=== PATIENT | male | born 1955 | race Asian ===

== ENCOUNTER 2019-11-13 21:46 | Emergency (ER) | payer MEDICARE ==
[~2019-11-13] VITALS: Ht 172.7 cm; Wt 79.0 kg
[2019-11-13 21:47] VITALS: TEMP 97.8
[2019-11-13 22:23] LABS: BASO % 0.4 % (0.0-2.0); EOS # 0.2 (0.0-0.7); EOS % 2.3 % (0-4.0); GRAN # 6.1 (1.4-6.5); GRAN % 80.2 % (42.2-75.2); HEMOGLOBIN 12.4 g/dl (13.5-18.0); LYMPH # 0.7 (1.2-3.4); LYMPH % 9.8 % (20.0-51.0); MEAN CELL VOLUME 93 fl (80.0-100.0); MEAN CORPUSCULAR HEMOGLOBIN 33 pg (27.0-31.0); MEAN CORPUSCULAR HGB CONC 36 g/dl (33.0-37.0); MEAN PLATELET VOLUME 9.2 fl (7.4-10.4); MONO # 0.5 (0.1-0.6); MONO % 6.9 % (1.7-9.3); PLATELET COUNT 153 K/mm3 (130-400); RED BLOOD COUNT 3.73 M/mm3 (4.20-5.60); REDCELL DISTRIBUTION WIDTH-CV 12.7 % (11.5-14.5)
[2019-11-13 22:24] LABS: HEMATOCRIT 34.8 % (42.0-52.0)
[2019-11-13 22:34] LABS: ACETAMINOPHEN < 10 ug/mL (10-30); ALANINE AMINOTRANSFERASE 14 U/L (21-72); ALBUMIN 4.2 gm/dL (3.5-5.0); ALCOHOL(ethanol),MEDICAL < 10 mg/dL; ALKALINE PHOSPHATASE 119 U/L (50-136); ANION GAP 14 mmol/L (7-16); AST,SGOT 27 U/L (15-37); BILIRUBIN,TOTAL 0.5 mg/dL (0.0-1.0); BLOOD UREA NITROGEN 39 mg/dL (9-20); CALCIUM 7.9 mg/dL (8.4-10.2); CARBON DIOXIDE 31 mmol/L (22-30); CHLORIDE 91 mmol/L (98-107); CREATININE, serum 4.34 (0.66-1.25); GLUCOSE 300 mg/dL (74-106); POTASSIUM 3.8 mmol/L (3.4-5.0); SODIUM 136 mmol/L (137-145); TOTAL PROTEIN 7.6 gm/dL (6.4-8.2)
[2019-11-14 00:04] LABS: COLLECTION METHOD CLEAN CATCH
[2019-11-14 00:10] LABS: MUCOUS Present /lpf; PH 8 (5-8); SQUAMOUS EPITHELIAL 0-2 /hpf; URINE APPEARANCE Clear; URINE BACTERIA None Seen /hpf; URINE BILIRUBIN Negative (NEGATIVE); URINE BLOOD Negative (NEGATIVE); URINE COLOR Yellow; URINE GLUCOSE 3+ (NEGATIVE); URINE KETONE Negative (NEGATIVE); URINE LEUKOCYTE ESTERASE Negative (NEGATIVE); URINE NITRATE Negative (NEGATIVE); URINE PROTEIN(semi-quant) 2+ (NEGATIVE); URINE UROBILINOGEN Negative (NEGATIVE)
[2019-11-14 00:17] LABS: TRICYCLIC ANTIDEPRESS URINE NEGATIVE
[2019-11-14 01:13] VITALS: BP 136/73; PULSE 85
== END 2019-11-14 01:13 | disposition home or self-care (01) ==
LOC: COL.ER 21:46
PROVIDERS: Family Medicine
DX: F32.9 Major depressive disorder, single episode, unspecified (principal); N18.6 End stage renal disease; Z99.2 Dependence on renal dialysis

== ENCOUNTER 2019-12-08 18:57 | Emergency (ER) | payer MEDICARE ==
[~2019-12-08] VITALS: Ht 172.7 cm; Wt 2.3 kg
[2019-12-08 18:58] VITALS: TEMP 98.3
[2019-12-08 19:35] LABS: BASO % 0.7 % (0.0-2.0); EOS # 0.2 (0.0-0.7); GRAN # 4.5 (1.4-6.5); GRAN % 75.5 % (42.2-75.2); HEMOGLOBIN 12.5 g/dl (13.5-18.0); LYMPH # 0.8 (1.2-3.4); MEAN CELL VOLUME 93 fl (80.0-100.0); MEAN CORPUSCULAR HEMOGLOBIN 32 pg (27.0-31.0); MEAN CORPUSCULAR HGB CONC 34 g/dl (33.0-37.0); MEAN PLATELET VOLUME 8.8 fl (7.4-10.4); MONO # 0.5 (0.1-0.6); MONO % 7.5 % (1.7-9.3); PLATELET COUNT 130 K/mm3 (130-400); RED BLOOD COUNT 3.94 M/mm3 (4.20-5.60); REDCELL DISTRIBUTION WIDTH-CV 12.5 % (11.5-14.5)
[2019-12-08 19:36] LABS: HEMATOCRIT 36.8 % (42.0-52.0)
[2019-12-08 19:42] LABS: ALBUMIN 4.4 gm/dL (3.5-5.0); BILIRUBIN,TOTAL 0.6 mg/dL (0.0-1.0); CALCIUM 8.9 mg/dL (8.4-10.2); CREATININE, serum 8.31 (0.66-1.25); POTASSIUM 4.7 mmol/L (3.4-5.0); TOTAL PROTEIN 8.1 gm/dL (6.4-8.2)
[2019-12-08 19:54] LABS: TROPONIN-I 0.02 ng/mL (0.000-0.035)
[2019-12-08 23:05] VITALS: BP 146/82; PULSE 83
== END 2019-12-08 23:05 | disposition home or self-care (01) ==
LOC: COL.ER 18:57
PROVIDERS: Emergency Medicine
DX: E11.65 Type 2 diabetes mellitus with hyperglycemia (principal); E11.22 Type 2 diabetes mellitus with diabetic chronic kidney disease; I12.0 Hypertensive chronic kidney disease with stage 5 chronic kidney disease or end stage renal disease; N18.6 End stage renal disease; Z99.2 Dependence on renal dialysis; Z87.891 Personal history of nicotine dependence; Z95.9 Presence of cardiac and vascular implant and graft, unspecified
CPT/HCPCS: J1815

== ENCOUNTER 2019-12-17 22:41 | Emergency (ER) | payer MEDICARE ==
[~2019-12-17] VITALS: Ht 172.7 cm; Wt 80.2 kg
[2019-12-17 22:47] VITALS: BP 176/81; TEMP 97.5
[2019-12-18 00:56] VITALS: PULSE 70
== END 2019-12-18 00:57 | disposition home or self-care (01) ==
LOC: COL.ER 22:41
DX: K56.41 Fecal impaction (principal); N18.6 End stage renal disease; Z99.2 Dependence on renal dialysis

== ENCOUNTER 2020-07-31 20:28 | Observation (INO) | payer MEDICARE ==
[~2020-07-31] VITALS: Ht 172.7 cm; Wt 83.0 kg
[~2020-07-31 20:28] MED LIST: LEVEMIR FLEX100 U/ML SQ; LIPITOR 40MG TA40 MG PO; STOOL SOFTENER100 M2 PO; TUMS500 MG PO; VITAMIN B12 781 TAB PO; VITAMIN D 400400 IU PO
[2020-07-31 20:57] VITALS: BP 126/73; PULSE 79
[2020-07-31 21:00] LABS: BASO % 0.5 % (0.0-2.0); EOS # 0.1 (0.0-0.7); EOS % 1.7 % (0-4.0); GRAN # 4.5 (1.4-6.5); GRAN % 76.8 % (42.2-75.2); HEMOGLOBIN 10.9 g/dl (13.5-18.0); LYMPH # 0.6 (1.2-3.4); LYMPH % 10.6 % (20.0-51.0); MEAN CELL VOLUME 92 fl (80.0-100.0); MEAN CORPUSCULAR HEMOGLOBIN 31 pg (27.0-31.0); MEAN CORPUSCULAR HGB CONC 34 g/dl (33.0-37.0); MEAN PLATELET VOLUME 9.2 fl (7.4-10.4); MONO # 0.6 (0.1-0.6); MONO % 10.1 % (1.7-9.3); PLATELET COUNT 153 K/mm3 (130-400); RED BLOOD COUNT 3.51 M/mm3 (4.20-5.60); REDCELL DISTRIBUTION WIDTH-CV 13.3 % (11.5-14.5)
[2020-07-31 21:02] LABS: HEMATOCRIT 32.4 % (42.0-52.0)
[2020-07-31 21:19] LABS: ALANINE AMINOTRANSFERASE 16 U/L (4-49); ALBUMIN 4.2 gm/dL (3.5-5.0); ALKALINE PHOSPHATASE 69 U/L (50-136); ANION GAP 10 mmol/L (7-16); AST,SGOT 22 U/L (15-37); BILIRUBIN,TOTAL 0.5 mg/dL (0.0-1.0); BLOOD UREA NITROGEN 30 mg/dL (9-20); CALCIUM 8.7 mg/dL (8.4-10.2); CARBON DIOXIDE 33 mmol/L (22-30); CHLORIDE 95 mmol/L (98-107); CREATININE, serum 5.21 (0.66-1.25); GLUCOSE 187 mg/dL (74-106); POTASSIUM 3.7 mmol/L (3.4-5.0); SODIUM 138 mmol/L (137-145); TOTAL PROTEIN 7.4 gm/dL (6.4-8.2)
[2020-07-31 21:20] LABS: C-REACTIVE PROTEIN < 0.5 mg/dL (0.0-0.9)
[2020-07-31 21:30] LABS: TROPONIN-I 0.012 ng/mL (0.000-0.035)
[2020-07-31] MEDS ORDERED: METAMUCIL3.4 GM/Dos (21:44)
--- NOTE | 2020-07-31 23:54 | NUR ---
RECEIVED REPORT FROM OSCAR PEOPLES. PT SUPPOSED TO BE ON TELE BUT NO MORE BOX AVAILABLE AT THIS TIME. PURVI MOSQUEDA AWARE.
[2020-08-01] VITALS (8 sets, daily range): BP systolic 100–167; BP diastolic 46–80; PULSE 74–91; TEMP 97.9–98.6
--- NOTE | 2020-08-01 00:13 | NUR ---
PT ARRIVED IN UNIT VIA WHEELCHAIR, ALERT AND ORIENTED X 4, ON ROOM AIR.
[2020-08-01] MEDS ORDERED: ASPIRIN 81M81 MG/TA2 PO (00:42)
--- NOTE | 2020-08-01 06:30 | NUR ---
CLARIFIED WITH PATIENT THAT HE TAKES 20 UNITS OF LEVEMIR AT NIGHT. OSITO, PHARMACIST UPDATED. WILL PASS THIS ALONG TO ONCOMING DAY SHIFT NURSE TO CLARIFY WITH DR. LUEVANO THIS AM. LEVEMIR DOSE LAST NIGHT WAS MISSED IT WAS ON PENDING STATUS.
--- NOTE | 2020-08-01 09:32 | NUR ---
Initial visit; Patient appeared to like speaking with Boardinghouse Keeper about his beliefs and health issues. Boardinghouse Keeper offered prayer and God's blessings.
[2020-08-01 09:49] LABS: ALBUMIN 3.6 gm/dL (3.5-5.0); CREATININE, serum 6.21 (0.66-1.25); POTASSIUM 4.1 mmol/L (3.4-5.0)
--- NOTE | 2020-08-01 09:50 | NUR ---
Pt sleeping upon entry, no C/O pain at this time, shift assessments complete, left Pt call light in reach, bed in lowest position.
--- NOTE | 2020-08-01 16:20 | NUR ---
Bursar met with the patient to complete intake. The patient lives alone in [place]. The patient has a cane he uses when he goes out in the community. He uses the bus for transport. He is independent with ADLs. The patient's PCP is Dr. Mcgregor and his Component Inspector is Dr. Amado. The patient receives medications from [facility] pharmacy. The patient does not have advanced directives and was not interested in DPOA-HC form. He is not but has two daughters, Livia and Kaylan Khan. Livia # [phone]. The patient plans to return home at discharge.
--- NOTE | 2020-08-01 18:52 | NUR ---
Pt rsting in the room, no C/O pain today, VS have remained stable.
--- NOTE | 2020-08-01 21:10 | NUR ---
Pt assessment completed and documented. Pt resting in bed watching television. Pt alert and oriented x4. Denies pain. INT to right hand CDI. Fistula to LUE CDI with autible bruit and strong thrill. Pt denies any needs at this time. Call light within reach. Will continue to monitor
[2020-08-02 03:41] VITALS: BP 134/61; PULSE 76; TEMP 98.2
--- NOTE | 2020-08-02 05:22 | NUR ---
Pt has been awake intermittently throughout the night. Pt has denied pain. Pt denies any needs/concerns at this time. Call light within reach.
--- NOTE | 2020-08-02 07:31 | NUR ---
Report given to OSCAR Andersen
[2020-08-02 07:58] LABS: ALBUMIN 3.8 gm/dL (3.5-5.0); CALCIUM 8.9 mg/dL (8.4-10.2); CREATININE, serum 8.25 (0.66-1.25); PHOSPHOROUS 6.9 mg/dL (2.5-4.5); POTASSIUM 4.2 mmol/L (3.4-5.0)
[2020-08-02 08:47] LABS: BASO # 0.1 (0.0-0.2); BASO % 0.7 % (0.0-2.0); EOS # 0.3 (0.0-0.7); EOS % 4.6 % (0-4.0); GRAN # 4.9 (1.4-6.5); GRAN % 69.9 % (42.2-75.2); HEMOGLOBIN 10.9 g/dl (13.5-18.0); LYMPH # 1.2 (1.2-3.4); LYMPH % 17.3 % (20.0-51.0); MEAN CELL VOLUME 93 fl (80.0-100.0); MEAN CORPUSCULAR HEMOGLOBIN 31 pg (27.0-31.0); MEAN CORPUSCULAR HGB CONC 33 g/dl (33.0-37.0); MEAN PLATELET VOLUME 9.1 fl (7.4-10.4); MONO # 0.5 (0.1-0.6); MONO % 7.2 % (1.7-9.3); PLATELET COUNT 162 K/mm3 (130-400); REDCELL DISTRIBUTION WIDTH-CV 13.2 % (11.5-14.5)
[2020-08-02 08:48] LABS: HEMATOCRIT 32.6 % (42.0-52.0)
--- NOTE | 2020-08-02 10:22 | NUR ---
Pt sleeping upon entry, easily awakened, no C/O pain at this time, shift assessments complete, moved Pt to dialysis.
[2020-08-02 12:30] VITALS: BP 132/55; PULSE 70; TEMP 97.5
--- NOTE | 2020-08-02 12:30 | NUR ---
Crm Technical Lead contacted the patient's daughter to discuss the discharge plan. She states the patient was supposed to have an appointment with Dr. Mcgregor this day to set up home health services. The patient is to return home with [facility]. She will be able to give the patient a ride if he discharge in-between 3:[address] Mcgregor's office, the patient is to be set up with [facility] because they have a mental health nurse. Referral faxed. LETICIA contacted Demetria with [facility] to inform her of the referral. The patient is Medicare Aet[employer] and they will have to check the insurance benefit. Per Dr. Mcgregor office Crm Technical Lead the patient has an open APS case due to the patient's daughter trying to get guardianship. She is having trouble affording the legal fees. LETICIA attempted to contact the APS worker assigned, Sofi Cheek, left message. The patient has dialysis M/W/F and the Dr. Mcgregor's office requested any appointments be made on Tuesdays and . LETICIA informed Medical unit controllerJose Augustin from [facility] they cannot accept the patient due to they do not take Medicare Aetna. LETICIA contacted [facility] and they do take Medicare Aetna. Referral faxed. LETICIA collaborated the above information with Hazel in Dr. Mcgregor's office to provide this update.
[2020-08-02 16:42] VITALS: BP 137/59; PULSE 77; TEMP 98.1
--- NOTE | 2020-08-02 16:53 | NUR ---
[facility] is not in-network with the patient's insurance. [facility] is in network. LETICIA sent referral to [facility]. LETICIA contacted Rakel with [facility] to inform her. She will review the referral.
--- NOTE | 2020-08-02 21:30 | NUR ---
Pt was setting on recliner while this nurse was taking bedside handover. Pt assessment completed and charted. Meds provided as per MAR, tolerated well. Pt is settled on his bed, bed alaram is on. Call light is on reach, no futher needs at this time.
[2020-08-02 21:32] VITALS: BP 173/67; PULSE 83; TEMP 98.2
[2020-08-03 00:22] VITALS: BP 156/57; PULSE 96; TEMP 98.4
[2020-08-03 04:30] VITALS: BP 145/71; PULSE 79; TEMP 98.6
--- NOTE | 2020-08-03 06:07 | NUR ---
Pt slept on and off through out the night. Complained of pain around 0430, PRN pain meds provided, also pt wanted to walk to the hallway, accompanied him for walk. Pt went to sleep after that. No further needs at this time.
[2020-08-03 09:04] LABS: ALBUMIN 3.9 gm/dL (3.5-5.0); CALCIUM 9.1 mg/dL (8.4-10.2); CREATININE, serum 6.41 (0.66-1.25); PHOSPHOROUS 5.3 mg/dL (2.5-4.5); POTASSIUM 4.6 mmol/L (3.4-5.0)
--- NOTE | 2020-08-03 09:12 | NUR ---
Pt awake and alert this morning, no C/O pain at this time, Pt upset about daughter not calling and was yelling at staff, calmed Pt, Pt wants to speak with social work, shift assessments complete, left Pt sitting on side of bed eating breakfast, call light in reach.
[2020-08-03 13:17] VITALS: BP 160/67; PULSE 67
--- NOTE | 2020-08-03 14:27 | NUR ---
SW attempted notification of DC to DTR 6 calls made. Phone goes to voicemail and can not leave message. SW called non-emergent line to [employer] to send message to family Member to go to home. Notify of DC and needs to picker operator. Father indicated that DTR will not answer her phone.
--- NOTE | 2020-08-03 15:35 | NUR ---
SW called House to assist with taxi voucher to [place]. Patient prompted on being able to care for himself. Patient stated he did not care and he was tired. patient stated not to wake him until its devika to leave.
--- NOTE | 2020-08-03 16:40 | NUR ---
Pt discharged to home, discussed discharge packet with Pt, escorted Pt to entrance, Pt left in Taxi.
--- NOTE | 2020-08-05 16:01 | NUR ---
Rakel from [facility] reports they did take the patient for services and admitted the patient for home health services on Saturday 08/04. Nursing and PT. Rakel reports she is collaborating with the professor of art from Dr. Garcia's office due to the patient being safe at home.
[2020-10-02] MEDS ORDERED: PREDNISONE20 MG PO (10:07)
[2020-10-02] MEDS ORDERED: RT Anoro Ellipta IH (10:09)
== END 2020-08-03 16:40 | disposition home or self-care (01) ==
LOC: COL.ER 20:28 → MEDICAL 22:14
PROVIDERS: Emergency Medicine; ADMIT Internal Medicine Nephrology
DX: I95.9 Hypotension, unspecified (principal); I12.0 Hypertensive chronic kidney disease with stage 5 chronic kidney disease or end stage renal disease; E11.22 Type 2 diabetes mellitus with diabetic chronic kidney disease; N18.6 End stage renal disease; D63.1 Anemia in chronic kidney disease; J84.10 Pulmonary fibrosis, unspecified; I25.2 Old myocardial infarction; I25.10 Atherosclerotic heart disease of native coronary artery without angina pectoris; F43.10 Post-traumatic stress disorder, unspecified; F41.0 Panic disorder [episodic paroxysmal anxiety]; Z99.2 Dependence on renal dialysis; Z79.4 Long term (current) use of insulin; Z79.899 Other long term (current) drug therapy; Z79.82 Long term (current) use of aspirin; Z87.891 Personal history of nicotine dependence; Z87.820 Personal history of traumatic brain injury; Z95.1 Presence of aortocoronary bypass graft; Z95.828 Presence of other vascular implants and grafts
CPT/HCPCS: OP; G0378; J1815; J7030

== ENCOUNTER 2020-08-11 23:08 | Emergency (ER) | payer MEDICARE ==
[~2020-08-11] VITALS: Ht 172.7 cm; Wt 83.2 kg
[~2020-08-11 23:08] MED LIST changes: +ASPIRIN 81M81 MG/TA2 PO; +METAMUCIL3.4 GM/Dos
[2020-08-11 23:27] VITALS: TEMP 98.3
[2020-08-12 00:19] LABS: BASO % 0.4 % (0.0-2.0); EOS # 0.2 (0.0-0.7); EOS % 2.1 % (0-4.0); GRAN # 7.5 (1.4-6.5); HEMOGLOBIN 11.6 g/dl (13.5-18.0); LYMPH # 0.9 (1.2-3.4); MEAN CELL VOLUME 93 fl (80.0-100.0); MEAN CORPUSCULAR HEMOGLOBIN 31 pg (27.0-31.0); MEAN CORPUSCULAR HGB CONC 33 g/dl (33.0-37.0); MEAN PLATELET VOLUME 8.7 fl (7.4-10.4); MONO # 0.5 (0.1-0.6); MONO % 5.3 % (1.7-9.3); PLATELET COUNT 176 K/mm3 (130-400); RED BLOOD COUNT 3.73 M/mm3 (4.20-5.60); REDCELL DISTRIBUTION WIDTH-CV 13.1 % (11.5-14.5)
[2020-08-12 00:26] LABS: HEMATOCRIT 34.7 % (42.0-52.0)
[2020-08-12 00:40] LABS: COLLECTION METHOD CLEAN CATCH
[2020-08-12 00:40] LABS: ALANINE AMINOTRANSFERASE 19 U/L (4-49); ALBUMIN 4.6 gm/dL (3.5-5.0); ALKALINE PHOSPHATASE 78 U/L (50-136); ANION GAP 18 mmol/L (7-16); AST,SGOT 25 U/L (15-37); BILIRUBIN,TOTAL 0.5 mg/dL (0.0-1.0); BLOOD UREA NITROGEN 70 mg/dL (9-20); CALCIUM 9.3 mg/dL (8.4-10.2); CARBON DIOXIDE 23 mmol/L (22-30); CHLORIDE 97 mmol/L (98-107); GLUCOSE 253 mg/dL (74-106); LIPASE 306 U/L (23-300); SODIUM 138 mmol/L (137-145); TOTAL PROTEIN 8.4 gm/dL (6.4-8.2)
[2020-08-12 00:41] LABS: POTASSIUM 5.9 mmol/L (3.4-5.0)
[2020-08-12 00:47] LABS: PH 9 (5-8); SQUAMOUS EPITHELIAL None Seen /hpf; URINE APPEARANCE Clear; URINE BACTERIA None Seen /hpf; URINE BILIRUBIN Negative (NEGATIVE); URINE BLOOD 1+ (NEGATIVE); URINE COLOR Straw; URINE GLUCOSE 3+ (NEGATIVE); URINE KETONE Negative (NEGATIVE); URINE LEUKOCYTE ESTERASE Negative (NEGATIVE); URINE NITRATE Negative (NEGATIVE); URINE PROTEIN(semi-quant) 3+ (NEGATIVE); URINE UROBILINOGEN Negative (NEGATIVE)
[2020-08-12 00:53] LABS: TROPONIN-I < 0.012 ng/mL (0.000-0.035)
[2020-08-12 03:00] VITALS: BP 177/89; PULSE 79
== END 2020-08-12 03:00 | disposition home or self-care (01) ==
LOC: COL.ER 23:08
PROVIDERS: Emergency Medicine
DX: E11.22 Type 2 diabetes mellitus with diabetic chronic kidney disease (principal); N18.6 End stage renal disease; E87.5 Hyperkalemia; I25.10 Atherosclerotic heart disease of native coronary artery without angina pectoris; Z99.2 Dependence on renal dialysis; Z86.79 Personal history of other diseases of the circulatory system; Z79.82 Long term (current) use of aspirin; Z79.4 Long term (current) use of insulin
CPT/HCPCS: J1815; J2405

== ENCOUNTER 2020-08-27 12:15 | Inpatient (IN) | payer MEDICARE ==
[~2020-08-27] VITALS: Ht 152.4 cm; Wt 79.6 kg
[2020-08-27 13:18] LABS: COLLECTION METHOD CLEAN CATCH
[2020-08-27 13:22] LABS: BASO % 0.2 % (0.0-2.0); GRAN % 76.4 % (42.2-75.2); HEMOGLOBIN 10.9 g/dl (13.5-18.0); LYMPH # 0.5 (1.2-3.4); LYMPH % 10.1 % (20.0-51.0); MEAN CELL VOLUME 95 fl (80.0-100.0); MEAN CORPUSCULAR HEMOGLOBIN 31 pg (27.0-31.0); MEAN CORPUSCULAR HGB CONC 33 g/dl (33.0-37.0); MEAN PLATELET VOLUME 9.4 fl (7.4-10.4); MONO # 0.7 (0.1-0.6); MONO % 13.1 % (1.7-9.3); PLATELET COUNT 122 K/mm3 (130-400); RED BLOOD COUNT 3.51 M/mm3 (4.20-5.60); REDCELL DISTRIBUTION WIDTH-CV 13.6 % (11.5-14.5)
[2020-08-27 13:26] LABS: HEMATOCRIT 33.5 % (42.0-52.0)
[2020-08-27 13:28] LABS: PH 9 (5-8); SQUAMOUS EPITHELIAL None Seen /hpf; URINE APPEARANCE Clear; URINE BACTERIA Rare /hpf; URINE BILIRUBIN Negative (NEGATIVE); URINE BLOOD Negative (NEGATIVE); URINE COLOR Straw; URINE GLUCOSE 3+ (NEGATIVE); URINE KETONE Negative (NEGATIVE); URINE LEUKOCYTE ESTERASE Negative (NEGATIVE); URINE NITRATE Negative (NEGATIVE); URINE PROTEIN(semi-quant) 3+ (NEGATIVE); URINE UROBILINOGEN Negative (NEGATIVE)
[2020-08-27 13:31] LABS: MUCOUS Present /lpf
[2020-08-27 13:34] LABS: ALBUMIN 4.4 gm/dL (3.5-5.0); BILIRUBIN,TOTAL 0.6 mg/dL (0.0-1.0); CALCIUM 8.2 mg/dL (8.4-10.2); CREATININE, serum 8.61 (0.66-1.25); POTASSIUM 4.4 mmol/L (3.4-5.0); TOTAL PROTEIN 7.9 gm/dL (6.4-8.2)
[2020-08-27 13:53] LABS: ARTERIAL BLD GAS O2 SATURATION 97.2 % (92-100); ARTERIAL BLD GAS TCO2 CT 30.1; ARTERIAL BLOOD GAS BASE EXCESS 4.9 (-2-2); ARTERIAL BLOOD GAS HCO3 28.9 meq/L (22-26); ARTERIAL BLOOD GAS PCO2 40.1 mmHg (35-45); ARTERIAL BLOOD GAS PO2 98.5 mmHg (80-100); ARTERIAL BLOOD GAS pH 7.48 (7.35-7.45)
[2020-08-27 19:50] VITALS: BP 144/72; PULSE 97; TEMP 101.1
[2020-08-27 20:08] VITALS: BP 144/74; PULSE 82; TEMP 101.1
--- NOTE | 2020-08-27 20:13 | NUR ---
Pt in room resting, initial assessments complete.
--- NOTE | 2020-08-27 20:20 | NUR ---
Received report from Ganesh. Informed patient that we will transfer him to .301 as the computer is not working. Patient feels really weak and cannot transfer from bed to wheelchair. Transferred patient from his bed. He is on O2 at 2lpm via NC. He is febrile with temp of 101.1F. On left arm restriction, with fistula on his left upper arm covered with gauze. With INT on right AC. Call light within reach.
--- NOTE | 2020-08-27 20:39 | NUR ---
This nurse called Dr. Amado for the order of Accucheck. He ordered ACHS and low dose insulin. Verified if patient will have dialysis tomorrow and he said yes and asked if lab works can be done during dialysis and he said it's okay. Updated him that patient is febrile right now with temp of 101.1F.
[2020-08-27 22:12] VITALS: TEMP 101
[2020-08-27 23:19] VITALS: BP 132/74; PULSE 83; TEMP 99
[2020-08-28 03:34] VITALS: BP 132/74; PULSE 74; TEMP 98.2
--- NOTE | 2020-08-28 06:26 | NUR ---
Patient still on O2 at 2lpm via NC. He is afebrile now with temp of 98.2F. Informed patient that he will have dialysis today but no specific time. Sputum specimen submitted, pending result. Call light within reach. Bed alarm on.
--- NOTE | 2020-08-28 06:55 | NUR ---
Report from OSCAR Harding. Pt sitting up in bed, A&O x 3, denies needs at this time. Call light in reach.
[2020-08-28 08:15] VITALS: BP 138/80; PULSE 79; TEMP 98.2
--- NOTE | 2020-08-28 08:15 | NUR ---
Assessment complete. Pt sitting up in bed, A&O x 3, assisted with getting breakfast set up. Pt denies pain, reports overall fatigue. Saline lock IV to right AC without s/s of complications. O2 at 2 L/min via NC. No further needs reported. Call light in reach.
[2020-08-28 10:39] VITALS: BP 180/102; PULSE 79; TEMP 99.8
--- NOTE | 2020-08-28 11:33 | NUR ---
The patient is positive for COVID. SW contacted the patient's personal phone to complete intake. The patient lives alone in [place]. He states that his daughter, Livia Khan (ph#[phone]), also lives in [place]. He reports independence with ADLs and has a cane and a cart that he uses as a walker. The patient's PCP is Dr. Isidra Mcgregor and he receives his medications from [facility]. He reports no difficulties obtaining his meds. The patient does not have a DPOA-HC and he was not interested in completing a DPOA-HC at this time. He states that he is not and that he has two children: Livia and Kaylan. He states that Kaylan lives in [facility] or [place]. The patient was recently hospitalized in July. The patient had an open APS case then. LETICIA contacted the patient's APS worker, Sofi. Sofi states that the patient's case was closed. She states that they got things set up that the patient needed and he was getting a payee out of [place]. The patient plans to return home upon discharge. LETICIA attempted to contact the patient's daughter, Livia. SW left her a voicemail. SW to continue to follow.
--- NOTE | 2020-08-28 12:05 | NUR ---
Pt's BP elevated, PRN medication administered per orders and Nephrology nurse notified. Pt was up to bathroom for BM just after BP assessed. No further needs reported. Call light in reach.
[2020-08-28 14:29] LABS: MEAN CELL VOLUME 92 fl (80.0-100.0); MEAN CORPUSCULAR HGB CONC 34 g/dl (33.0-37.0); MEAN PLATELET VOLUME 9.4 fl (7.4-10.4); PLATELET COUNT 116 K/mm3 (130-400); RED BLOOD COUNT 3.13 M/mm3 (4.20-5.60); REDCELL DISTRIBUTION WIDTH-CV 13.1 % (11.5-14.5)
[2020-08-28 14:36] LABS: HEMATOCRIT 28.9 % (42.0-52.0); HEMOGLOBIN 9.7 g/dl (13.5-18.0); MEAN CORPUSCULAR HEMOGLOBIN 31 pg (27.0-31.0)
[2020-08-28 14:38] LABS: ALBUMIN 3.8 gm/dL (3.5-5.0); BILIRUBIN,TOTAL 0.4 mg/dL (0.0-1.0); CALCIUM 7.5 mg/dL (8.4-10.2); CREATININE, serum 10.36 (0.66-1.25); POTASSIUM 5.2 mmol/L (3.4-5.0); TOTAL PROTEIN 7.1 gm/dL (6.4-8.2)
[2020-08-28 15:08] LABS: BAND 8 % (0-10); LYMPHOCYTE 5 % (20.0-51.0); NEUTROPHILS 86 % (42.0-75.2); PLATELET ESTIMATE DECREASED (NORMAL)
--- NOTE | 2020-08-28 16:30 | NUR ---
LETICIA contacted the patient's daughter, Livia, and provided her with an update and reviewed the patient's d/c plan. Livia states that she visits the patient usually once a week and talks to him a few times a week. Livia reports that she has no concerns about the patient returning home upon discharge.
--- NOTE | 2020-08-28 17:45 | NUR ---
Pt's dialysis complete. Pt sitting up on side of bed eating dinner. Sched medication administered. Hot tea provided per request. No further needs reported. Call light in reach.
[2020-08-28 20:10] VITALS: BP 145/74; PULSE 68; TEMP 98.9
--- NOTE | 2020-08-28 21:05 | NUR ---
Pt resting in bed, assessment completed. heart sounds are regular and normal, lung sounds are diminished. shortness of breath on exertion with a nonproductive cough. pt on 2 liters oxgen via nasal cannula. pt reports dizziness when walking, gait is steady but slow. gave medications per MAR, no other needs at this time. will continue to monitor.
[2020-08-28 23:28] VITALS: BP 150/74; PULSE 76; TEMP 98.8
--- NOTE | 2020-08-29 01:52 | NUR ---
pt reporting abdominal pain, denies nausea and vomiting. requested tylenol. gave tylenol prn.
[2020-08-29 03:27] VITALS: BP 152/75; PULSE 73; TEMP 98.8
--- NOTE | 2020-08-29 05:45 | NUR ---
Pt slept in bed most of night, called for any needs. no fever, vital signs remained stable. on oxygen at 2 liters via nasal cannula. pt reported one instance of abdominal pain, gave tylenol prn. pain improved, no other needs at this time.
[2020-08-29 08:18] VITALS: BP 180/75; PULSE 100; TEMP 102.8
--- NOTE | 2020-08-29 10:54 | NUR ---
Assessment complete. Patient was attempting to stand on his own on entry early this morning in order to use the urinal. Bed alarm was triggered, I gowned up to go in. He was partially incontinent. Full bed change and gown provided. Patient then ambulated to recliner to sit for the morning and breakfast. He will randomly wince in pain but when asking what is hurting he is non specific and will not tell me what is hurting. Patient was very talkative and seemed to be in good spirits for the most part. BP was high, PRN apresoline provided for this, temp 102.8 PRN tylenol provided for this. No other needs or complaints from the patient at this time. Call light is in reach.
[2020-08-29 11:44] VITALS: BP 147/58; PULSE 82; TEMP 99.8
[2020-08-29 16:25] VITALS: BP 154/59; PULSE 81; TEMP 98.5
--- NOTE | 2020-08-29 18:17 | NUR ---
Patient had a pretty good day. Spent most of it in the recliner. Had to remind patient that it can be difficult to get to him fast due to the preautions on the COVID floor, he is understanding when speaking to him in person but will often become angry and yell through the call light. He voided using the urinal through the day but often missed and soiled his pants. Still non specfic aches and pains when moving around. IV site is CD&I. Fistula site CD&I. No other needs. Call light is in reach.
--- NOTE | 2020-08-29 19:30 | NUR ---
Patient assessed at this time. Alert and oriented x 4, and able to make needs known. Reported level 3 pain to abdomen. Given PRN APAP as requested, as well as scheduled Tums. Peripheral INT to right forearm flushed. Site without redness, warmth, swelling, and pain. AV fistual to left arm with positive bruit and thrill. Denies SOB and dyspnea. Continues on oxygen at 2 L/min via NC. LS CTA. Respirations even and unlabored. HRR. Capillary refill less than 3 seconds. Non-tenting skin turgor. BS hypoactive x 4. Reports no BM for a few days, but is passing gas. Abdomen soft. 2+ edema BLE. Using bedside urinal-urine yellow and clear. Voices no questions, needs, or concerns at this time. Resting in bed with call light within reach.
[2020-08-29 20:03] VITALS: BP 150/74; PULSE 81; TEMP 98.5
[2020-08-29 23:53] VITALS: BP 156/80; PULSE 83; TEMP 98.2
[2020-08-30] VITALS (9 sets, daily range): BP systolic 133–165; BP diastolic 69–88; PULSE 77–104; TEMP 97.3–103.2
--- NOTE | 2020-08-30 05:49 | NUR ---
Patient had fever 102.1 around 0445. Had received PRN APAP around 0230 for pain to abdomen. Stated that medication was effective for pain management. Continues to be on oxygen at 2 L/min via NC. Occasional cough, dry, non-productive. Did get nauseous around 0230 as well, but declined wanting PRN Zofran. Given hot tea as requested. Patient has been using bedside urinal, but has been incontinent as well. Voices no questions, needs, or concerns at this time. Resting in bed with call light within reach.
--- NOTE | 2020-08-30 09:44 | NUR ---
Assessment complete. Patient laying in bed asleep on entry. When he awoke he stated that he felt he had a fever and wanted me to take his temperature. On check his temp was 103.o, Madina MOORE aware. PRN tylenol provded for the patient. Moans and groans on movement but remains non specific. IV site and fistula site are CD&I at this time, IV flushed well. Patient is droswy and not talkative at this time. No other needs were expressed at this time. Call light is in reach. Bed alarm is set.
[2020-08-30 10:55] LABS: MEAN CELL VOLUME 92 fl (80.0-100.0); MEAN CORPUSCULAR HGB CONC 34 g/dl (33.0-37.0); MEAN PLATELET VOLUME 9.9 fl (7.4-10.4); PLATELET COUNT 109 K/mm3 (130-400); RED BLOOD COUNT 3.02 M/mm3 (4.20-5.60); REDCELL DISTRIBUTION WIDTH-CV 13.2 % (11.5-14.5)
[2020-08-30 11:08] LABS: HEMATOCRIT 27.7 % (42.0-52.0); HEMOGLOBIN 9.3 g/dl (13.5-18.0); MEAN CORPUSCULAR HEMOGLOBIN 31 pg (27.0-31.0)
[2020-08-30 11:15] LABS: BAND 21 % (0-10); LYMPHOCYTE 8 % (20.0-51.0); NEUTROPHILS 71 % (42.0-75.2); PLATELET ESTIMATE DECREASED (NORMAL)
[2020-08-30 11:35] LABS: ALBUMIN 3.8 gm/dL (3.5-5.0); BILIRUBIN,TOTAL 0.4 mg/dL (0.0-1.0); CALCIUM 8.2 mg/dL (8.4-10.2); CREATININE, serum 9.96 (0.66-1.25); POTASSIUM 5.1 mmol/L (3.4-5.0); TOTAL PROTEIN 7.2 gm/dL (6.4-8.2)
--- NOTE | 2020-08-30 17:58 | NUR ---
Patient had an uneventful shift. Spent most of day with Mariola in room during dialysis. Convolescant FFP was administered during dialysis. Mariola and I recieved verbal consent for this. Minimal complaints of pain, covered with tylenol. Patient is drowsy now after dialysis but is more alert than he was this morning. Will continue to monitor. Call light is in reach. Fall precautions in place.
--- NOTE | 2020-08-30 19:00 | NUR ---
Received report from Maria Ines. Seen patient awake, lying in bed. His urinal was in the floor and he was trying to reach it. Informed patient to use the call light if he needs help. He is alert and oriented. Denies pain.
--- NOTE | 2020-08-30 20:35 | NUR ---
Patient is febrile with temp of 102.6F. Tylenol given. His SPO2 was at 89% on O2 2lpm. Increased O2 to 3lpm via NC. Informed Aracelis of RT.
[2020-08-31] VITALS (9 sets, daily range): BP systolic 118–150; BP diastolic 56–90; PULSE 81–94; TEMP 97.1–102.7
--- NOTE | 2020-08-31 02:35 | NUR ---
Patient states he's hungry. [place] box provided. Rechecked temp= 99.4F. Changed his briefs and underpads.
--- NOTE | 2020-08-31 06:25 | NUR ---
Patient had febrile episodes the whole night. Latest temp was 99F. No bowel movement during the night. Still on O2 at 3lpm via NC.
--- NOTE | 2020-08-31 08:28 | NUR ---
Lying in bed with eyes closed, opens eyes when name called out. Alert and oriented x3. Having some pain in his abdomen, requests Tylenol for this. Will administer as prescribed. Denies shortness of air or productive cough. Oxygen on at 3L/NC. Patient denies further needs or concerns at this time.
--- NOTE | 2020-08-31 11:26 | NUR ---
Patient does not want to do shower but would like a bed bath. Bed bath provided at this time. Patient assisted from bed to chair so that bed linens could be changed. Patient gait slow. Bed linens changed. Patient performs oral care. Patient says that since he has gotten sick he gets worn out easier. Wants to stay sitting up in chair. Assisted to reclining position. Patient says that he is frustrated that he feels so helpless. Reassurance provided. Patient denies additional needs at this time.
--- NOTE | 2020-08-31 13:01 | NUR ---
Patient ready to get back in bed. Assisted back to bed. Patient does not want to eat at this time but wants his lunch tray left in room. Denies additional needs at this time.
[2020-08-31 14:48] LABS: MEAN CELL VOLUME 95 fl (80.0-100.0); MEAN CORPUSCULAR HGB CONC 33 g/dl (33.0-37.0); MEAN PLATELET VOLUME 10.2 fl (7.4-10.4); PLATELET COUNT 91 K/mm3 (130-400); RED BLOOD COUNT 3.18 M/mm3 (4.20-5.60); REDCELL DISTRIBUTION WIDTH-CV 13.4 % (11.5-14.5)
[2020-08-31 14:50] LABS: HEMATOCRIT 30.1 % (42.0-52.0); HEMOGLOBIN 9.8 g/dl (13.5-18.0); MEAN CORPUSCULAR HEMOGLOBIN 31 pg (27.0-31.0)
[2020-08-31 14:58] LABS: ALBUMIN 3.9 gm/dL (3.5-5.0); BILIRUBIN,TOTAL 0.6 mg/dL (0.0-1.0); CALCIUM 8.7 mg/dL (8.4-10.2); CREATININE, serum 8.14 (0.66-1.25); POTASSIUM 5.3 mmol/L (3.4-5.0); TOTAL PROTEIN 7.4 gm/dL (6.4-8.2)
[2020-08-31 15:32] LABS: BAND 4 % (0-10); LYMPHOCYTE 6 % (20.0-51.0); NEUTROPHILS 90 % (42.0-75.2)
[2020-08-31 15:33] LABS: HYPOCHROMIA 1+; PLATELET ESTIMATE DECREASED (NORMAL)
--- NOTE | 2020-08-31 16:11 | NUR ---
Patient sitting on edge of bed. Will try to have a BM later to see if that is the reason his abd feels crampy at times. Provided hot tea per patient request. Denies additional needs at this time.
--- NOTE | 2020-08-31 17:04 | NUR ---
Patient requests to use bathroom to try to have bowel movement. Able to pass gas and have small formed stool. Assist patient back to bed. Continues to wear oxygen at 3L/NC. Says he gets tired easily with activity. Denies additional needs or concerns.
--- NOTE | 2020-08-31 19:35 | NUR ---
Received report from [facility]. Patient currently eating his dinner. He is requesting for hot tea. No other needs noted. Call light within reach.
--- NOTE | 2020-08-31 21:40 | NUR ---
SABI informed this nurse that the patient's blood glucose was at 440mg/dl. Re-checked it again after 30 minutes and it went down to 428mg/dl. Scheduled insulins not yet given. Will inform Dr. Amado.
--- NOTE | 2020-08-31 22:07 | NUR ---
This nurse informed Dr. Amado via phone call that patient's blood glucose was 428mg/dl. He asked if scheduled insulin was already given including the 30 units Levemir and informed him not yet. He ordered to increase Levemir to 35 units.
[2020-09-01 00:43] VITALS: BP 134/68; PULSE 82; TEMP 97.9
[2020-09-01 04:16] VITALS: BP 155/90; PULSE 77; TEMP 98.1
--- NOTE | 2020-09-01 06:59 | NUR ---
Endorsed to Brandi. Patient still maintained on O2 at 3lpm. He is afebrile. With occasional abdominal pain. Call light within reach.
[2020-09-01 08:00] VITALS: BP 170/82; PULSE 75; TEMP 97.5
--- NOTE | 2020-09-01 09:00 | NUR ---
Patient sitting up in bed watching TV. A&Ox3, patient says he seems slightly confused. VSS, O2 increased from 3.5 to 4.5 NC. IV CDI. Nurse assisted patient with using the urinal, patient says he has been having trouble with using the urinal and nurse instructed patient to call for assistance when needed. Droplet/contact precautions in place. No further needs expressed from the patient. Call light within reach
[2020-09-01 12:00] VITALS: BP 160/78; PULSE 86; TEMP 98
[2020-09-01 12:00] LABS: MEAN CELL VOLUME 91 fl (80.0-100.0); MEAN CORPUSCULAR HGB CONC 34 g/dl (33.0-37.0); MEAN PLATELET VOLUME 10.3 fl (7.4-10.4); PLATELET COUNT 124 K/mm3 (130-400); RED BLOOD COUNT 2.64 M/mm3 (4.20-5.60); REDCELL DISTRIBUTION WIDTH-CV 13.2 % (11.5-14.5)
[2020-09-01 12:01] LABS: HEMATOCRIT 23.9 % (42.0-52.0); HEMOGLOBIN 8.2 g/dl (13.5-18.0); MEAN CORPUSCULAR HEMOGLOBIN 31 pg (27.0-31.0)
[2020-09-01 12:20] LABS: ALBUMIN 3.7 gm/dL (3.5-5.0); BILIRUBIN,TOTAL 0.4 mg/dL (0.0-1.0); CREATININE, serum 9.27 (0.66-1.25); POTASSIUM 5.3 mmol/L (3.4-5.0); TOTAL PROTEIN 7.2 gm/dL (6.4-8.2)
[2020-09-01 12:42] LABS: BAND 8 % (0-10); LYMPHOCYTE 1 % (20.0-51.0); NEUTROPHILS 88 % (42.0-75.2); PLATELET ESTIMATE DECREASED (NORMAL)
[2020-09-01 17:27] VITALS: BP 152/82; PULSE 83; TEMP 97.9
--- NOTE | 2020-09-01 18:17 | NUR ---
Patient sitting up in bed watching TV. VSS. Patients O2 needs increased from 4.5L to 7.5L NC. RT notified to assess patient. Patient has no complaints of SOB, pain or discomfort. IV CDI, fluids infusing. Patient requested to use the bathroom after eatting supper. Nurse instructed the patient to call for assistance when needing to use the bathroom. Patient verbalized an understanding. Droplet/contact precautions in place. No further needs expressed from the patient. Call light within reach. Bed alarm on
[2020-09-01 20:29] VITALS: BP 156/82; PULSE 87; TEMP 98.7
--- NOTE | 2020-09-01 22:11 | NUR ---
Pt resting in bed, assessment completed and medications given per MAR. pt states that he does not feel short of breath when resting and denies pain, states that he feels tired. on oxygen via nasal cannula on 6 liters, lung sounds are diminished and cough is nonproductive. heart sounds are regular and normal. IV site came out, this nurse attempted new IV start. Charge nurse to start new IV. no other needs at this time, will continue to monitor.
[2020-09-02] VITALS (279 sets, daily range): BP systolic 86–158; BP diastolic 47–86; PULSE 82–96; TEMP 97.6–99.5; O2SAT 66–100
--- NOTE | 2020-09-02 01:32 | NUR ---
Pt called, reporting abdominal pain and nausea rating a 6 out of 10. gave tylenol prn. house sup attempted IV start, could not start IV. this nurse called In[facility] and updated on pt IV and abdominal pain, verbal phone order for Zofran ODT for nausea. will administer and continue to monitor.
--- NOTE | 2020-09-02 06:30 | NUR ---
Report received from OSCAR Renteria. pT in bed resting with eyes closed.
[2020-09-02 10:01] LABS: MEAN CELL VOLUME 91 fl (80.0-100.0); MEAN CORPUSCULAR HGB CONC 33 g/dl (33.0-37.0); MEAN PLATELET VOLUME 10.2 fl (7.4-10.4); PLATELET COUNT 140 K/mm3 (130-400); RED BLOOD COUNT 3.14 M/mm3 (4.20-5.60); REDCELL DISTRIBUTION WIDTH-CV 13.4 % (11.5-14.5)
[2020-09-02 10:05] LABS: HEMATOCRIT 28.5 % (42.0-52.0); HEMOGLOBIN 9.5 g/dl (13.5-18.0); MEAN CORPUSCULAR HEMOGLOBIN 30 pg (27.0-31.0)
[2020-09-02 10:07] LABS: ALBUMIN 3.7 gm/dL (3.5-5.0); BILIRUBIN,TOTAL 0.4 mg/dL (0.0-1.0); CREATININE, serum 10.88 (0.66-1.25); POTASSIUM 4.7 mmol/L (3.4-5.0); TOTAL PROTEIN 7.4 gm/dL (6.4-8.2)
[2020-09-02 10:32] LABS: BAND 19 % (0-10); BASOPHIL 1 % (0-2); LYMPHOCYTE 2 % (20.0-51.0); METAMYELOCYTE 1 % (0-0); NEUTROPHILS 75 % (42.0-75.2); PLATELET ESTIMATE NORMAL (NORMAL)
[2020-09-02 12:12] LABS: ARTERIAL BLD GAS O2 SATURATION 85.4 % (92-100); ARTERIAL BLD GAS TCO2 CT 24.7; ARTERIAL BLOOD GAS BASE EXCESS 1.4 (-2-2); ARTERIAL BLOOD GAS HCO3 23.8 meq/L (22-26); ARTERIAL BLOOD GAS PCO2 29.7 mmHg (35-45); ARTERIAL BLOOD GAS pH 7.52 (7.35-7.45)
--- NOTE | 2020-09-02 12:45 | NUR ---
PLACED PT AIRVO HFNC 60L 90%. SPO2 92%.
--- NOTE | 2020-09-02 13:10 | NUR ---
Assessment charted. PT in bed resting, has difficulty opening eyes today and is unable to "verbalize how poorly i feel right now". C/o pain at 8/10 to hips and low abd, PRN tylenol givne. 02 demands increasing today, ABG revealed more needs nad pt now on airvo. Tried explaining what is going on with patient today, called Tressa for central line. LFA AV Fistula. Dr. Bustillos in room right now to place central line. Will continue to monitor.
--- NOTE | 2020-09-02 15:17 | NUR ---
Report called to OSCAR Watts in ICU who will resume care. pt resting in bed with airvo at 60L. Will get downstairs when ready.
[2020-09-02 15:26] LABS: ARTERIAL BLD GAS O2 SATURATION 94.9 % (92-100); ARTERIAL BLD GAS TCO2 CT 26.4; ARTERIAL BLOOD GAS BASE EXCESS 2.5 (-2-2); ARTERIAL BLOOD GAS HCO3 25.4 meq/L (22-26); ARTERIAL BLOOD GAS PCO2 32.2 mmHg (35-45); ARTERIAL BLOOD GAS PO2 73.9 mmHg (80-100); ARTERIAL BLOOD GAS pH 7.52 (7.35-7.45)
--- NOTE | 2020-09-02 16:48 | NUR ---
Patient to transfer to ICU.
--- NOTE | 2020-09-02 17:30 | NUR ---
Pt transferred down to ICU with assistance of RN and staff. Pt tolerated well, transferred over to ICU bed. Denies needs, ICU staff to resume care.
--- NOTE | 2020-09-02 17:40 | NUR ---
Admitted to room ICU 3 via bed from medical floor with RT and RN at side. Monitors applied and AirVo reapplied. Alert, confused at times. Dr. Amado and Dr. Ferrer in unit and aware of arrival.
[2020-09-03] VITALS (714 sets, daily range): BP systolic 65–200; BP diastolic 39–90; PULSE 55–78; TEMP 97.7–98.7; O2SAT 64–100
[2020-09-03 04:42] LABS: HEMATOCRIT 24.1 % (42.0-52.0); HEMOGLOBIN 7.8 g/dl (13.5-18.0); MEAN CELL VOLUME 93 fl (80.0-100.0); MEAN CORPUSCULAR HEMOGLOBIN 30 pg (27.0-31.0); MEAN CORPUSCULAR HGB CONC 32 g/dl (33.0-37.0); PLATELET COUNT 170 K/mm3 (130-400); REDCELL DISTRIBUTION WIDTH-CV 13.6 % (11.5-14.5)
[2020-09-03 04:52] LABS: ALBUMIN 3.8 gm/dL (3.5-5.0); BILIRUBIN,TOTAL 0.4 mg/dL (0.0-1.0); CALCIUM 8.8 mg/dL (8.4-10.2); CREATININE, serum 8.49 (0.66-1.25); POTASSIUM 5.2 mmol/L (3.4-5.0); TOTAL PROTEIN 7.8 gm/dL (6.4-8.2)
[2020-09-03 04:54] LABS: LYMPHOCYTE 2 % (20.0-51.0); NEUTROPHILS 95 % (42.0-75.2); PLATELET ESTIMATE NORMAL (NORMAL)
[2020-09-03 04:55] LABS: HYPOCHROMIA 1+
--- NOTE | 2020-09-03 07:30 | NUR ---
Report received from Stefanie MOORE and care resumed.
[2020-09-03 09:15] LABS: ARTERIAL BLD GAS O2 SATURATION 82.7 % (92-100); ARTERIAL BLD GAS TCO2 CT 23.1; ARTERIAL BLOOD GAS BASE EXCESS -1.4 (-2-2); ARTERIAL BLOOD GAS HCO3 22.1 meq/L (22-26); ARTERIAL BLOOD GAS PCO2 32.6 mmHg (35-45); ARTERIAL BLOOD GAS PO2 48.7 mmHg (80-100); ARTERIAL BLOOD GAS pH 7.45 (7.35-7.45)
--- NOTE | 2020-09-03 09:25 | NUR ---
Dr Ferrer in to see pt at this time.
[2020-09-03 11:07] LABS: COLLECTION METHOD CATHETER
[2020-09-03 11:17] LABS: MUCOUS Present /lpf; PH 6 (5-8); SQUAMOUS EPITHELIAL 0-2 /hpf; URINE APPEARANCE Clear; URINE BACTERIA Rare /hpf; URINE BILIRUBIN Negative (NEGATIVE); URINE BLOOD 1+ (NEGATIVE); URINE COLOR Yellow; URINE GLUCOSE 1+ (NEGATIVE); URINE KETONE Negative (NEGATIVE); URINE LEUKOCYTE ESTERASE Negative (NEGATIVE); URINE NITRATE Negative (NEGATIVE); URINE PROTEIN(semi-quant) 3+ (NEGATIVE); URINE UROBILINOGEN Negative (NEGATIVE); URINE WBC 0-2 /hpf
--- NOTE | 2020-09-03 13:45 | NUR ---
1253 - ESPINOZA TURNER ADVANCED NURSING PROFESSOR HERE TO INTUBATE PATIENT. TIME OUT COMPLETED AT BEDSIDE WITH FRANCO MARTINEZ, SARAH RN, AND ESPINOZA GÓMEZ. STARTING VITAL SIGNS 93% WITH AMBU BAG ASSIST OF BREATHING, 128/68, HR 73. INTUBATED WITH 8.0 ET TUBE, 24CM AT TEETH/GUMS COMPLETED AT 1255 CO2 DETECTOR WITH POSITIVE COLOR CHANGE AND BILATERAL AUSCULATION WAS EQUAL MEDS GIVEN DURING INTUBATION- SEE EMAR STARTED PROPOFOL AND FENTANYL FOR PATIENT COMFORT. ENDING B/P 144/87.
[2020-09-03 14:37] LABS: ARTERIAL BLD GAS O2 SATURATION 98.9 % (92-100); ARTERIAL BLD GAS TCO2 CT 21.4; ARTERIAL BLOOD GAS BASE EXCESS -3.1 (-2-2); ARTERIAL BLOOD GAS HCO3 20.5 meq/L (22-26); ARTERIAL BLOOD GAS PCO2 31.4 mmHg (35-45); ARTERIAL BLOOD GAS pH 7.43 (7.35-7.45)
[2020-09-03 14:38] LABS: ARTERIAL BLOOD GAS PO2 169.5 mmHg (80-100)
--- NOTE | 2020-09-03 16:56 | NUR ---
Pt still not sedated to level ordered but adjusting propofol and levophed for appropriate blood pressure levels as well as sedation levels.
--- NOTE | 2020-09-03 17:58 | NUR ---
Dr Amado in to see pt at this time.
--- NOTE | 2020-09-03 18:10 | NUR ---
Dr Amado still concerned regarding proning patient with fistula access. Stated he would rather us not prone pt at this time due to risk of clotting of AV fistula.
--- NOTE | 2020-09-03 19:30 | NUR ---
Received report from OSCAR Ruiz.
--- NOTE | 2020-09-03 19:30 | NUR ---
Patient not proned due to Dr. Amado concern of putting pressure on patient's fistula.
--- NOTE | 2020-09-03 19:39 | NUR ---
Report given to Noa MOORE and care transfered.
[2020-09-04] VITALS (826 sets, daily range): BP systolic 73–215; BP diastolic 41–100; PULSE 60–86; TEMP 96.8–99; O2SAT 61–100
--- NOTE | 2020-09-04 00:48 | NUR ---
Contacted ZAIN regarding patient's blood glucose and PRN insulin drip orders. Patient's blood glucose at 2130 was 282. Scheduled sliding-scale of 8 units administered along with scheduled long-acting of 50 units. Blood sugar at [address] Umana recommended we hold insulin drip at this time. She suggests we check blood sugars every two hours, dosing with sliding-scale according to orders every four hours. Administered another 8 units of sliding-scale according to orders. Will continue to monitor.
--- NOTE | 2020-09-04 02:58 | NUR ---
Patient has had total of approximately 85mL of urine output since 1899. Notified ZAIN. No orders received at this time.
--- NOTE | 2020-09-04 05:00 | NUR ---
Patient's sedation set to standby during AM lab draws. Sedation off for approximately 10-15 minutes. During this time, patient opening eyes spontaneously and following verbal commands. Patient attempts to reach towards ET tube and sedation is resumed.
[2020-09-04 05:25] LABS: MEAN CELL VOLUME 95 fl (80.0-100.0); MEAN CORPUSCULAR HGB CONC 33 g/dl (33.0-37.0); MEAN PLATELET VOLUME 10.3 fl (7.4-10.4); PLATELET COUNT 219 K/mm3 (130-400)
[2020-09-04 05:27] LABS: HEMATOCRIT 28.5 % (42.0-52.0); HEMOGLOBIN 9.4 g/dl (13.5-18.0); MEAN CORPUSCULAR HEMOGLOBIN 31 pg (27.0-31.0)
[2020-09-04 05:36] LABS: ALBUMIN 3.6 gm/dL (3.5-5.0); BILIRUBIN,TOTAL 0.5 mg/dL (0.0-1.0); CALCIUM 8.9 mg/dL (8.4-10.2); CREATININE, serum 10.55 (0.66-1.25); POTASSIUM 5.2 mmol/L (3.4-5.0); TOTAL PROTEIN 7.3 gm/dL (6.4-8.2)
[2020-09-04 05:44] LABS: PHOSPHOROUS 11.4 mg/dL (2.5-4.5)
[2020-09-04 05:58] LABS: ARTERIAL BLD GAS O2 SATURATION 91.9 % (92-100); ARTERIAL BLD GAS TCO2 CT 18.6; ARTERIAL BLOOD GAS BASE EXCESS -6.9 (-2-2); ARTERIAL BLOOD GAS HCO3 17.6 meq/L (22-26); ARTERIAL BLOOD GAS PCO2 32.1 mmHg (35-45); ARTERIAL BLOOD GAS PO2 69.1 mmHg (80-100); ARTERIAL BLOOD GAS pH 7.36 (7.35-7.45)
[2020-09-04 06:09] LABS: NEUTROPHILS 90 % (42.0-75.2); PLATELET ESTIMATE NORMAL (NORMAL)
[2020-09-04 06:10] LABS: BAND 5 % (0-10); LYMPHOCYTE 4 % (20.0-51.0)
--- NOTE | 2020-09-04 07:10 | NUR ---
VENT CHECK MISSED, RT BUSY
--- NOTE | 2020-09-04 07:30 | NUR ---
Report given to OSCAR Tobin.
--- NOTE | 2020-09-04 19:30 | NUR ---
Received report from OSCAR Tobin. Patient is currently in prone position and tolerating well. Will continue to monitor.
[2020-09-05] VITALS (654 sets, daily range): BP systolic 83–173; BP diastolic 45–99; PULSE 61–84; TEMP 96.7–98.3; O2SAT 38–100
--- NOTE | 2020-09-05 00:36 | NUR ---
Tube feeds titrated 21mL to goal rate of 41mL/hr. Will continue to monitor.
[2020-09-05 04:59] LABS: MEAN CELL VOLUME 95 fl (80.0-100.0); MEAN CORPUSCULAR HGB CONC 34 g/dl (33.0-37.0); MEAN PLATELET VOLUME 9.8 fl (7.4-10.4); PLATELET COUNT 181 K/mm3 (130-400); RED BLOOD COUNT 2.63 M/mm3 (4.20-5.60); REDCELL DISTRIBUTION WIDTH-CV 13.9 % (11.5-14.5)
--- NOTE | 2020-09-05 05:00 | NUR ---
Sedation vacation not performed due to prone positioning.
[2020-09-05 05:05] LABS: HEMATOCRIT 24.9 % (42.0-52.0); HEMOGLOBIN 8.5 g/dl (13.5-18.0); MEAN CORPUSCULAR HEMOGLOBIN 32 pg (27.0-31.0)
[2020-09-05 05:10] LABS: ARTERIAL BLD GAS O2 SATURATION 98.5 % (92-100); ARTERIAL BLD GAS TCO2 CT 22.7; ARTERIAL BLOOD GAS BASE EXCESS -2.5 (-2-2); ARTERIAL BLOOD GAS HCO3 21.7 meq/L (22-26); ARTERIAL BLOOD GAS PCO2 34.4 mmHg (35-45); ARTERIAL BLOOD GAS PO2 131.4 mmHg (80-100); ARTERIAL BLOOD GAS pH 7.42 (7.35-7.45)
[2020-09-05 05:10] LABS: ALBUMIN 3.1 gm/dL (3.5-5.0); BILIRUBIN,TOTAL 0.3 mg/dL (0.0-1.0); CALCIUM 8.4 mg/dL (8.4-10.2); CREATININE, serum 6.8 (0.66-1.25); MAGNESIUM 2.6 mg/dL (1.6-2.3); PHOSPHOROUS 8.9 mg/dL (2.5-4.5); POTASSIUM 4.3 mmol/L (3.4-5.0); TOTAL PROTEIN 6.5 gm/dL (6.4-8.2)
[2020-09-05 05:30] LABS: BAND 3 % (0-10); LYMPHOCYTE 5 % (20.0-51.0); METAMYELOCYTE 1 % (0-0); NEUTROPHILS 80 % (42.0-75.2); NUCLEATED RED BLOOD CELL 1 (0-6); PLATELET ESTIMATE NORMAL (NORMAL)
[2020-09-05 05:31] LABS: ANISOCYTOSIS 1+; HYPOCHROMIA 1+
--- NOTE | 2020-09-05 09:39 | NUR ---
The patient remains intubated and on the vent. SW attempted to contact and update the patient's daughter, Livia. SW left her a voicemail.
--- NOTE | 2020-09-05 11:31 | NUR ---
The patient's daughter, Livia, returned LETICIA's phone call. LETICIA provided Livia with an update and explained LETICIA's role. Livia verbalized understanding and confirms that the patient only has two children: her and her sister, Kaylan (ph#[phone]). She had no other questions for LETICIA at this time. LETICIA to continue to follow.
--- NOTE | 2020-09-05 17:30 | NUR ---
Sedation vacation not indicated at this time as the patient is prone.
--- NOTE | 2020-09-05 21:39 | NUR ---
ASSISTED RN AND CLIENT RELATION SPECIALIST WITH TURNING PATIENTS HEAD AND BODY TO THE RIGHT. ETT IS STILL 24@LIP AND HAS PROPER PLACING.
[2020-09-06] VITALS (598 sets, daily range): BP systolic 70–173; BP diastolic 39–88; PULSE 60–82; TEMP 97.2–98.6; O2SAT 52–100
--- NOTE | 2020-09-06 00:40 | NUR ---
ASSISTED RN AND MARINE SERVICES TECHNICIAN IN SWTICHING PATIENTS BODY POSITION WHILE PRONE. ET STILL IN CORRECT PLACEMENT.
[2020-09-06 05:23] LABS: MEAN CELL VOLUME 96 fl (80.0-100.0); MEAN CORPUSCULAR HGB CONC 33 g/dl (33.0-37.0); MEAN PLATELET VOLUME 9.9 fl (7.4-10.4); PLATELET COUNT 192 K/mm3 (130-400); RED BLOOD COUNT 2.64 M/mm3 (4.20-5.60); REDCELL DISTRIBUTION WIDTH-CV 14.1 % (11.5-14.5)
[2020-09-06 05:26] LABS: HEMATOCRIT 25.2 % (42.0-52.0); HEMOGLOBIN 8.3 g/dl (13.5-18.0); MEAN CORPUSCULAR HEMOGLOBIN 31 pg (27.0-31.0)
[2020-09-06 05:32] LABS: ALBUMIN 3.2 gm/dL (3.5-5.0); BILIRUBIN,TOTAL 0.4 mg/dL (0.0-1.0); CALCIUM 8.1 mg/dL (8.4-10.2); CREATININE, serum 8.37 (0.66-1.25); MAGNESIUM 2.8 mg/dL (1.6-2.3); POTASSIUM 4.8 mmol/L (3.4-5.0); TOTAL PROTEIN 6.5 gm/dL (6.4-8.2)
[2020-09-06 05:33] LABS: ARTERIAL BLD GAS O2 SATURATION 93.1 % (92-100); ARTERIAL BLD GAS TCO2 CT 20.7; ARTERIAL BLOOD GAS HCO3 19.5 meq/L (22-26); ARTERIAL BLOOD GAS PCO2 38.4 mmHg (35-45); ARTERIAL BLOOD GAS PO2 78.1 mmHg (80-100); ARTERIAL BLOOD GAS pH 7.32 (7.35-7.45)
[2020-09-06 05:33] LABS: PHOSPHOROUS 10.7 mg/dL (2.5-4.5)
--- NOTE | 2020-09-06 05:37 | NUR ---
NO SEDATION VACATION DONE DUE TO PRONING
--- NOTE | 2020-09-06 05:38 | NUR ---
ASSITED RN AND STRIP DEBURRER WITH TURNING PATIENT ONTO OTHERSIDE WHILE PRONED. ET STILL 24 AT TEETH AND GETTING ADEQUATE TIDAL VOLUMES. AFTER PATIENT WAS SITUATED FOUND WHOLE TOOTH ON THE BED. RN NOTIFIED.
--- NOTE | 2020-09-06 05:49 | NUR ---
When turning the proned patient, it was noted by staff that patient had coughed out a tooth but no blood was noted to be coming from the gumline or out of ET tube. Will continue to monitor.
[2020-09-06 05:53] LABS: BAND 5 % (0-10); HYPOCHROMIA 1+; LYMPHOCYTE 4 % (20.0-51.0); METAMYELOCYTE 1 % (0-0); MYELOCYTE 1 % (0-0); NEUTROPHILS 83 % (42.0-75.2); NUCLEATED RED BLOOD CELL 1 (0-6); PLATELET ESTIMATE NORMAL (NORMAL)
[2020-09-06 05:54] LABS: OVALOCYTES 1+
--- NOTE | 2020-09-06 08:00 | NUR ---
PT repositioned to supine from the prone position with assitance of RT and 3 RNs. PT tolerated well. No complications noted. PT appears to be comfortable. Will continue to monitor.
--- NOTE | 2020-09-06 08:48 | NUR ---
LETICIA contacted and updated the patient's other daughter, Kaylan. Kaylan states that her sister, Livia, has been keeping her updated. LETICIA informed Livia that her and her sister are the patient's next-of-kin and decision maker, since he does not have a DPOA-HC. Kaylan verbalized understanding and was agreeable to this. Kaylan states that she lives in [facility]. She had no other questions for LETICIA at this time. LETICIA to continue to follow.
--- NOTE | 2020-09-06 17:30 | NUR ---
PT put in the prone position with assistance of 3 RNs and RT. PT tolerated well. Fistual in left arm with noted thrill and strong pulses. PT appears to be in no distress. Will continue to monitor.
[2020-09-06 21:29] LABS: ARTERIAL BLD GAS O2 SATURATION 96.7 % (92-100); ARTERIAL BLD GAS TCO2 CT 23.4; ARTERIAL BLOOD GAS BASE EXCESS -0.9 (-2-2); ARTERIAL BLOOD GAS HCO3 22.4 meq/L (22-26); ARTERIAL BLOOD GAS PCO2 32.8 mmHg (35-45); ARTERIAL BLOOD GAS PO2 91.6 mmHg (80-100); ARTERIAL BLOOD GAS pH 7.45 (7.35-7.45)
--- NOTE | 2020-09-06 21:42 | NUR ---
ASSISTED RN IN TURNING PATIENT TO ANOTHER POSITION. ET STILL 24@LIP.
--- NOTE | 2020-09-06 23:49 | NUR ---
ASSISTED RN IN TURNING PATIENT WHILE PRONED. ETT STILL 24@LIP.
[2020-09-07] VITALS (1089 sets, daily range): BP systolic 79–170; BP diastolic 47–101; PULSE 68–88; TEMP 97.1–98.7; O2SAT 65–100
--- NOTE | 2020-09-07 03:28 | NUR ---
After assisting with turning patients head to the other side. He was found to have a cuff leak in ETT. The ETT had not moved from 24@lip. There was a slight leak in cuff before but now patient is losing at least 200 in tidal volumes and substancial leak can be heard. I have tried problem solving the leak to see if it is positional that did not fix the issue. I also tried deflating and reinflating the cuff to see if the cuff was kinked, that still did not fix the issue. I also tried to find any leaks in the circuit which I found their to be none. The leak is being heard from mouth, therefore I rule out circuit leak. I inflated the cuff and watched the tidal volumes be about VT 498 for 2 breaths but then would immediantly drop to VT 250-350. I then determined that the cuff is bad and would need a total ETT changed. RN was notified and Dr. Ferrer was called to see how we wanted to proceed or if he wanted us to try a different method. Dr. Ferrer instructed us to flip patient back over from being proned and to call anesthesia for an ETT change.
--- NOTE | 2020-09-07 04:21 | NUR ---
After flipping patient back over, ETT was found to no longer be leaking and getting adequate tidal volumes. Possible that skin around cuff is wearing down and causing a leak when patient is proned. Called Dr. Ferrer to see if he would still like to change ETT. He said to not change ETT if he is still getting adequate tidal volumes. We will hold off on changing ETT and see how they would like to proceed in the morning.
[2020-09-07 04:51] LABS: MEAN CELL VOLUME 93 fl (80.0-100.0); MEAN CORPUSCULAR HGB CONC 33 g/dl (33.0-37.0); MEAN PLATELET VOLUME 9.6 fl (7.4-10.4); PLATELET COUNT 224 K/mm3 (130-400); RED BLOOD COUNT 2.81 M/mm3 (4.20-5.60); REDCELL DISTRIBUTION WIDTH-CV 14.1 % (11.5-14.5)
[2020-09-07 04:57] LABS: CALCIUM 8.4 mg/dL (8.4-10.2); CREATININE, serum 5.79 (0.66-1.25); POTASSIUM 4.4 mmol/L (3.4-5.0)
--- NOTE | 2020-09-07 05:00 | NUR ---
No sedation vacation done at this time as patient was just unproned and responded to light stimuli throughout the night, moved extremities.
[2020-09-07 05:02] LABS: HEMATOCRIT 26.2 % (42.0-52.0); HEMOGLOBIN 8.7 g/dl (13.5-18.0); MEAN CORPUSCULAR HEMOGLOBIN 31 pg (27.0-31.0)
[2020-09-07 05:19] LABS: BAND 7 % (0-10); LYMPHOCYTE 3 % (20.0-51.0); NEUTROPHILS 88 % (42.0-75.2); PLATELET ESTIMATE NORMAL (NORMAL)
[2020-09-07 05:46] LABS: ARTERIAL BLD GAS O2 SATURATION 96.9 % (92-100); ARTERIAL BLD GAS TCO2 CT 22.6; ARTERIAL BLOOD GAS BASE EXCESS -0.5 (-2-2); ARTERIAL BLOOD GAS HCO3 21.8 meq/L (22-26); ARTERIAL BLOOD GAS PCO2 28.6 mmHg (35-45); ARTERIAL BLOOD GAS PO2 94.8 mmHg (80-100)
--- NOTE | 2020-09-07 06:25 | NUR ---
CHANGED PATIENTS ETT DURON.
--- NOTE | 2020-09-07 07:30 | NUR ---
report received from Cari MOORE. Propofol running at 30mcg/kg/min. Levophed running at 0.02mcg/kg/min and fent running at 50mcg/hr.
[2020-09-07 11:54] LABS: ARTERIAL BLD GAS O2 SATURATION 95.4 % (92-100); ARTERIAL BLD GAS TCO2 CT 21.9; ARTERIAL BLOOD GAS BASE EXCESS -3.2 (-2-2); ARTERIAL BLOOD GAS HCO3 20.8 meq/L (22-26); ARTERIAL BLOOD GAS PCO2 33.4 mmHg (35-45); ARTERIAL BLOOD GAS PO2 85.4 mmHg (80-100); ARTERIAL BLOOD GAS pH 7.41 (7.35-7.45)
--- NOTE | 2020-09-07 12:18 | NUR ---
PT EXTUBATED TO NASAL CANNULA @ 3.5 LPM
--- NOTE | 2020-09-07 12:23 | NUR ---
1000- Peep decreased to 7 per . 1030- Sedation off and vent weaning trial per . RT called for abgs at 1130. 1218- Pt extubated by RT per . Pt on NC at 6L sating 92%.
--- NOTE | 2020-09-07 13:03 | NUR ---
PT ABLE TO FOLLOW COMMANDS. PT ABLE TO STATE HIS BIRTHDAY BUT VOICE VERY SOFT AND HOARSE. INSTRUCTED PT NURSING ASSOC LIGHT USE. INSTRUCTED TO CALL WITH ANY SOB, CP, PAIN, OR NEEDS. BEDALARM ACTIVATED. SPOKE WITH THIS RN AND STATED OK TO DO BEDSIDE SWALLOW AND IF PT PASSES PLACE ON CLEAR LIQUIDS.
--- NOTE | 2020-09-07 13:52 | NUR ---
CALLED AND NOTIFIED OF PT'S BP IN THE 160'S AND 170'S. ORDERS RECEIVED.
--- NOTE | 2020-09-07 14:17 | NUR ---
Bedside swallow done with PT. Pt able to tolerate sips of water and ice chips. Will place on clear liquid diet per .
--- NOTE | 2020-09-07 15:30 | NUR ---
Bg 71. PT given juice and soda to drink. Dinner tray ordered. Will continue to monitor.
--- NOTE | 2020-09-07 16:15 | NUR ---
CALLED REGARDING PT'S BP IN THE 160-180'S. STATES " DO NOT CALL FOR HYPERTENTION UNLESS SYMPTAMATIC". PT IS SCHEDULED TO HAVE ANOTHER DOSE OF IV METOPROLOL AT 2100. WILL CONTINUE TO MONITOR.
--- NOTE | 2020-09-07 17:29 | NUR ---
PT SATING 88% ON 3L NC. PT ENCOURAGE TO TAKE SLOW DEEP BREATHS. STILL ONLY SATING 90% PT INCREASED TO 5L NC. PT RESTING COMFORTABLY AND SATING 95%. WILL CONTINUE TO MONITOR.
[2020-09-08] VITALS (627 sets, daily range): BP systolic 129–183; BP diastolic 65–89; PULSE 74–95; TEMP 96.6–99; O2SAT 67–100
[2020-09-08 02:14] LABS: ARTERIAL BLD GAS O2 SATURATION 88.1 % (92-100); ARTERIAL BLD GAS TCO2 CT 19.5; ARTERIAL BLOOD GAS BASE EXCESS -6.2 (-2-2); ARTERIAL BLOOD GAS HCO3 18.5 meq/L (22-26); ARTERIAL BLOOD GAS PCO2 33.7 mmHg (35-45); ARTERIAL BLOOD GAS pH 7.36 (7.35-7.45)
--- NOTE | 2020-09-08 02:18 | NUR ---
Called [facility] at 0200 to inform them about patient now requiring 10L high flow oxygen, and request ABG to see oxygenation status. Dr. Ratliff agreed and abg was obtained. Called back at 216 to report ABG results back to physican. Wanted to leaver them on the 10L oxygen as he does not seem to be in destress at this time.
--- NOTE | 2020-09-08 02:20 | NUR ---
During 1999 assessment, patient noted to be fairly drowsy but awaked to voice. This RN checked the patient's glucose and was noted to be in the low 40's. 1/2 AMP of D50 given and glucose rechecked 15 minutes later and was in the 110's. Returned to recheck patient's glucose and was once again noted to be in the low 40's, another 1/2 amp of D50 was given and glucose rechecked 15 min later, back in the low 100's. This RN called [facility] provider at 2335 to report frequent hypoglycemia along with blood pressures in the 160-180 systolic range. Orders received to start patient on D10 at 20 mls/hr and hydralizine IV q4h PRN. Around 0100 this RN checked PT glucose after patient had been on D10 fluids for 1 hour, noted that the patient glucose was again in the low 40's. Called [facility] provider, order to give 1 amp of D50 and increase D10 rate to 40 mls/hr.
[2020-09-08 05:02] LABS: MEAN CELL VOLUME 92 fl (80.0-100.0); MEAN CORPUSCULAR HGB CONC 33 g/dl (33.0-37.0); MEAN PLATELET VOLUME 9.9 fl (7.4-10.4); PLATELET COUNT 241 K/mm3 (130-400); RED BLOOD COUNT 3.15 M/mm3 (4.20-5.60); REDCELL DISTRIBUTION WIDTH-CV 14.4 % (11.5-14.5)
[2020-09-08 05:05] LABS: HEMATOCRIT 29.1 % (42.0-52.0); HEMOGLOBIN 9.6 g/dl (13.5-18.0); MEAN CORPUSCULAR HEMOGLOBIN 30 pg (27.0-31.0)
[2020-09-08 05:08] LABS: CALCIUM 8.8 mg/dL (8.4-10.2); CREATININE, serum 8.32 (0.66-1.25); POTASSIUM 4.8 mmol/L (3.4-5.0)
[2020-09-08 05:25] LABS: BAND 2 % (0-10); LYMPHOCYTE 4 % (20.0-51.0); NEUTROPHILS 89 % (42.0-75.2); PLATELET ESTIMATE NORMAL (NORMAL)
--- NOTE | 2020-09-08 07:30 | NUR ---
Report received from Cari MOORE. Pt has D10 running at 80ml/hr.
--- NOTE | 2020-09-08 08:40 | NUR ---
Pt's Bg 66. Pt is awake and alert. Pt given 1/2 amp of d50 per dec. PT also helped to drink breakfast. Po meds given. Will advance diet to full liquid per .
--- NOTE | 2020-09-08 13:53 | NUR ---
1100- notified of pt's episodes of hypoglycemia. Instructed to just notify . 1330- notified of pt's hypoglycemia, D10 drip, and decreased appetitie. States will review chart and place orders.
--- NOTE | 2020-09-08 14:54 | NUR ---
Pt pushed out rectal tube while attempting to poop. Pt cleaned up and repositioned. Will leave rectal tube out at this time. Will check and clean up Pt frequently.
--- NOTE | 2020-09-08 18:00 | NUR ---
SHAYE HORNE'D PER ORDER. PT EDUCATED ON CALLING WHEN NEEDING TO VOID. CHUCKS IN PLACE. WILL ENDORSE TO FOLLOWING RN TO MONITOR FOR OUTPUT.
--- NOTE | 2020-09-08 19:30 | NUR ---
Received report from OSCAR Dwyer. Patient is resting quietly in bed with eyes closed. Vitals within normal limits. He is on 10L via high-flow nasal cannula, tolerating well and satting mid to high 90s. He is receiving D10 at 80 mL/hr to the white port of [facility]J central line. No other fluids infusing at this time. Will continue to monitor.
[2020-09-09] VITALS (919 sets, daily range): BP systolic 130–153; BP diastolic 62–74; PULSE 82–98; TEMP 98–99.1; O2SAT 66–100
[2020-09-09 05:37] LABS: ARTERIAL BLD GAS O2 SATURATION 90.5 % (92-100); ARTERIAL BLD GAS TCO2 CT 18.6; ARTERIAL BLOOD GAS BASE EXCESS -6.2 (-2-2); ARTERIAL BLOOD GAS HCO3 17.7 meq/L (22-26); ARTERIAL BLOOD GAS PO2 66.8 mmHg (80-100); ARTERIAL BLOOD GAS pH 7.39 (7.35-7.45)
[2020-09-09 06:33] LABS: ALBUMIN 3.3 gm/dL (3.5-5.0); BILIRUBIN,TOTAL 0.4 mg/dL (0.0-1.0); CALCIUM 8.3 mg/dL (8.4-10.2); CREATININE, serum 10.44 (0.66-1.25); MAGNESIUM 2.7 mg/dL (1.6-2.3); TOTAL PROTEIN 6.8 gm/dL (6.4-8.2)
[2020-09-09 06:40] LABS: PHOSPHOROUS 12.4 mg/dL (2.5-4.5); PRE ALBUMIN 34.4 mg/dL (17.6-36.0)
--- NOTE | 2020-09-09 08:00 | NUR ---
Patient seen and examined. He is very tired, but is easily wakened and slow to respond to questions. He states that his bottom is in pain. I encourage him to turn in the bed. He is turned and incontinent of stool. I clean him up and while he is turned on his side, his SPO2 is down to 78%.. Patient takes several minutes to recover, he has no complaints. Will communicate this with Dr. Dyson.
--- NOTE | 2020-09-09 13:58 | NUR ---
The patient was extubated. He remains on 6 liters of oxygen. He is to tentatively transfer up to the medical/surgical floor today. PT worked with the patient and they are recommending post-acute rehab. SW attempted to contact the patient. He did not answer. SW attempted to contact the patient's daughter, Livia. SW left her a voicemail. LETICIA then contacted the patient's other daughter, Kaylan. LETICIA informed her of PT's recommendation. Kaylan states that she needs to talk to her sister first and will then contact LETICIA. LETICIA then received a phone call back from Kaylan. Kaylan states that they would be agreeable to post-acute rehab for the patient. LETICIA informed Kaylan of the options available to the patient with him being COVID positive and on dialysis: [facility], [facility], and [facility]. Kaylan was agreeable to those options. She states that she would prefer 1) [facility] 2) [facility] 3) [facility], but is open to what facility can take him. LETICIA contacted and faxed a referral to all three facilities. SW awaiting their screens.
--- NOTE | 2020-09-09 14:00 | NUR ---
Patient has just started dialysis for the afternoon and his SPO2 went down into the 70%s. He is sleeping at this time. He is placed on Oxymask at 15L and will attempt to wean him down over the course of dialysis.
--- NOTE | 2020-09-09 14:45 | NUR ---
Barak, at [facility], reports that the patient's insurance (Medicare [employer]) is waiving auth for COVID positive patients right now. Barak states that he just needs to know when the clinical team is thinking d/c for the patient and then he would send up the referral to get approval. LETICIA updated the patient's RN.
--- NOTE | 2020-09-09 17:30 | NUR ---
Patient finished with hemodialysis at this time. His O2 requirements have been weaned down to 8L O2 via oxymask. He is in no apparent distress.
--- NOTE | 2020-09-09 19:00 | NUR ---
Received report from OSCAR Maldonado.
--- NOTE | 2020-09-09 19:00 | NUR ---
Patient is turned in bed to be cleaned and repositioned. His SPO2 drops to 72% with turning in the bed to be cleaned. His O2 is set to 8Lpm via hi flow cannula. He recovers over the next 10 minutes with coaching to breathe through his nose and exhale through his mouth.
[2020-09-10] VITALS (593 sets, daily range): BP systolic 110–159; BP diastolic 54–64; PULSE 82–100; TEMP 98.1–98.8; O2SAT 80–100
--- NOTE | 2020-09-10 07:00 | NUR ---
Received shift report from OSCAR Latham. All questions answered and medication and IV lines verified.
--- NOTE | 2020-09-10 09:35 | NUR ---
LETICIA updated Dr. Amado on [facility] and on the other facilities. Dr. Amado reports that these are great ideas, but that the patient is not near discharge yet. LETICIA to notify and send updates to [facility], [facility], and [facility].
[2020-09-10 10:10] LABS: MEAN CELL VOLUME 94 fl (80.0-100.0); MEAN CORPUSCULAR HGB CONC 33 g/dl (33.0-37.0); MEAN PLATELET VOLUME 9.6 fl (7.4-10.4); PLATELET COUNT 176 K/mm3 (130-400); RED BLOOD COUNT 2.62 M/mm3 (4.20-5.60); REDCELL DISTRIBUTION WIDTH-CV 14.3 % (11.5-14.5)
[2020-09-10 10:11] LABS: MEAN CORPUSCULAR HEMOGLOBIN 31 pg (27.0-31.0)
[2020-09-10 10:12] LABS: HEMATOCRIT 24.5 % (42.0-52.0)
[2020-09-10 10:19] LABS: ALBUMIN 3.1 gm/dL (3.5-5.0); BILIRUBIN,TOTAL 0.4 mg/dL (0.0-1.0); CALCIUM 8.2 mg/dL (8.4-10.2); CREATININE, serum 7.17 (0.66-1.25); POTASSIUM 3.9 mmol/L (3.4-5.0); TOTAL PROTEIN 6.2 gm/dL (6.4-8.2)
--- NOTE | 2020-09-10 10:40 | NUR ---
Dance Master was able to stand outside of door and pray for patient.
--- NOTE | 2020-09-10 10:47 | NUR ---
Spoke with Dr. Dyson about placing patient on Airvo. Patient requiring 10L of oxygen via oxymask or high flow nasal cannula. Dr. Dyson stated to keep patient on 10L.
--- NOTE | 2020-09-10 11:00 | NUR ---
Dr. Amado rounds on patient at this time. He is updated on patient condition. He is told about desaturation with any activity. Patient is currently on 10L O2 via oxymask. Dr. Dyson has also been updated on increase O2 requirements.
[2020-09-10 11:07] LABS: BAND 2 % (0-10); EOSINOPHIL 3 % (0-4); LYMPHOCYTE 1 % (20.0-51.0); NEUTROPHILS 94 % (42.0-75.2); PLATELET ESTIMATE NORMAL (NORMAL)
[2020-09-10 11:08] LABS: HYPOCHROMIA 1+
--- NOTE | 2020-09-10 19:05 | NUR ---
Received report from Cassie. Seen patient awake, lying in bed. On O2 at 10L via nasal cannula high flow. He is on left arm restriction. With Triple lumen on left IJ. Urinal on the bedside. Call light within reach.
[2020-09-11 00:13] VITALS: PULSE 82
[2020-09-11 04:00] VITALS: BP 131/53; PULSE 79; TEMP 99.1
--- NOTE | 2020-09-11 06:35 | NUR ---
Patient had uneventful night. Still on O2 at 10L. Had one episode of loose stools this morning. Patient's gown, bed linens and blankets were changed. Patient's weight has a big variance from the last few days. Bed was zero in and removed blankets and his weight now was 78.5kg. Asked patient what was his usual weight and he said he was at 80kg.
[2020-09-11 07:03] LABS: BASO % 0.1 % (0.0-2.0); EOS % 0.4 % (0-4.0); GRAN # 9.9 (1.4-6.5); GRAN % 89.3 % (42.2-75.2); LYMPH # 0.4 (1.2-3.4); LYMPH % 3.9 % (20.0-51.0); MEAN CELL VOLUME 94 fl (80.0-100.0); MEAN CORPUSCULAR HGB CONC 32 g/dl (33.0-37.0); MEAN PLATELET VOLUME 10.1 fl (7.4-10.4); MONO # 0.6 (0.1-0.6); MONO % 4.9 % (1.7-9.3); PLATELET COUNT 203 K/mm3 (130-400); RED BLOOD COUNT 2.48 M/mm3 (4.20-5.60)
[2020-09-11 07:09] LABS: HEMATOCRIT 23.2 % (42.0-52.0); HEMOGLOBIN 7.5 g/dl (13.5-18.0); MEAN CORPUSCULAR HEMOGLOBIN 30 pg (27.0-31.0)
[2020-09-11 07:22] LABS: ALBUMIN 3.2 gm/dL (3.5-5.0); BILIRUBIN,TOTAL 0.5 mg/dL (0.0-1.0); CALCIUM 8.2 mg/dL (8.4-10.2); CREATININE, serum 8.99 (0.66-1.25); POTASSIUM 4.1 mmol/L (3.4-5.0); TOTAL PROTEIN 6.1 gm/dL (6.4-8.2)
[2020-09-11 07:24] LABS: PHOSPHOROUS 9.3 mg/dL (2.5-4.5)
[2020-09-11 08:48] VITALS: BP 128/56; PULSE 80; TEMP 98.2
--- NOTE | 2020-09-11 09:39 | NUR ---
PATIENT ON 8LPM HI LOW CANNULA AT 96% SPO2 LINDA WEL
--- NOTE | 2020-09-11 11:06 | NUR ---
Assessment complete. Patient resting in bed, awake but drowsy. States he feels okay but is upset because he soiled his pants. He did have a very small incontinent bowel movement. New brief was provided as well incontinent care. Patient was able to roll well. Bottom was reddened and a little sore, no breakdown visible. No complaints of pain or discomfort were expressed. IJ site is CD&I. Fistula site is also CD&I, covered will gauze and tape, no signs of bleeding. No other needs were expressed at this time. Call light is in reach.
--- NOTE | 2020-09-11 15:16 | NUR ---
Automotive Lube Technician collaborated with Dr. Amado who advised patient is ready to discharge once placement is arranged. SW contacted Barak at [facility] who is working on authorization and bed availability.
[2020-09-11 16:56] VITALS: BP 138/73; PULSE 81; TEMP 97.9
--- NOTE | 2020-09-11 17:18 | NUR ---
PATIENT ON 8LPM VIA HIGH FLOW CANNULA, SPO2 95% WILL CONTINUE TO WEAN IN AM.
--- NOTE | 2020-09-11 18:00 | NUR ---
Patient had a good day, spent most of the day in dialysis. He is now back in his room comfortable, sitting up in the bed eating dinner. Blood sugars have trey good today. No complaints of pain or discomfort. He seems dazed mentally but is responsive and talkative. Call light is in reach at this time. Call light is in reach.
--- NOTE | 2020-09-11 19:05 | NUR ---
Received report from Maria Ines. Seen patient awake in bed. He is watching TV and requesting to find his call light remote as he cannot hear the volume of the TV. On O2 at 8lpm via NC.
[2020-09-11 20:16] VITALS: BP 165/90; PULSE 94; TEMP 99.1
--- NOTE | 2020-09-11 20:30 | NUR ---
Patient requesting for phone in his room as he wants to take to his daughter. Phone provided. Assesment completed. Flushed left IJ triple lumen catheter, dressing is CDI. He denies pain.
[2020-09-11 23:22] VITALS: BP 150/88; PULSE 85; TEMP 99.4
[2020-09-12 05:05] VITALS: BP 135/70; PULSE 75; TEMP 98.7
--- NOTE | 2020-09-12 06:33 | NUR ---
Patient had uneventful night. On O2 at 8lpm via NC. No bowel movement thru the night. He just requested for sandwich at around 3am. Denies pain.
[2020-09-12 07:41] LABS: MEAN CELL VOLUME 96 fl (80.0-100.0); MEAN CORPUSCULAR HGB CONC 32 g/dl (33.0-37.0); MEAN PLATELET VOLUME 9.6 fl (7.4-10.4); PLATELET COUNT 205 K/mm3 (130-400); RED BLOOD COUNT 2.36 M/mm3 (4.20-5.60); REDCELL DISTRIBUTION WIDTH-CV 14.3 % (11.5-14.5)
[2020-09-12 07:44] LABS: HEMATOCRIT 22.7 % (42.0-52.0); HEMOGLOBIN 7.3 g/dl (13.5-18.0); MEAN CORPUSCULAR HEMOGLOBIN 31 pg (27.0-31.0)
[2020-09-12 07:46] LABS: ALBUMIN 3.1 gm/dL (3.5-5.0); BILIRUBIN,TOTAL 0.4 mg/dL (0.0-1.0); CALCIUM 8.4 mg/dL (8.4-10.2); CREATININE, serum 6.54 (0.66-1.25); PHOSPHOROUS 6.4 mg/dL (2.5-4.5); POTASSIUM 4.8 mmol/L (3.4-5.0); TOTAL PROTEIN 6.1 gm/dL (6.4-8.2)
--- NOTE | 2020-09-12 07:59 | NUR ---
PATIENT IS ON 5PLM VIA HIGH FLOW NASAL CANNULA, SPO2 96%. LINDA WEL SVN VIA MASK.
[2020-09-12 08:00] VITALS: BP 138/65; PULSE 79; TEMP 99.1
[2020-09-12 09:19] LABS: BAND 4 % (0-10); EOSINOPHIL 2 % (0-4); LYMPHOCYTE 4 % (20.0-51.0); NEUTROPHILS 88 % (42.0-75.2); POLYCHROMASIA 1+
--- NOTE | 2020-09-12 09:19 | NUR ---
Assessment complete. Patient sleeping on entry, had to arouse patient multiple times before he awoke. Repositioned and sat patient up for breakfast. Phoslo provided with his breakfast. No complaints of pain or discomfort were reported. Patient is now on 5 liters of O2 satting at 91% at this time. Central line is intact, flushed and lila well. Will conitnue to monitor. Call light is in reach.
[2020-09-12 09:20] LABS: HYPOCHROMIA 1+
[2020-09-12 12:11] VITALS: BP 128/60; PULSE 84; TEMP 97.5
--- NOTE | 2020-09-12 14:06 | NUR ---
PATIENT ON 5LPM HIFLOW CANNULA, SPO2 92%.
--- NOTE | 2020-09-12 14:39 | NUR ---
At this time patient called out and pressed call light and stated that he was on the floor. Prior to this patient called and requested to go back to bed from the chair, patient was asked to wait patiently for 10 minutes as he had recieved a breathing treatment just prior. Before staff could reenter the room patient attempted to get out the chair and back to bed on his own and fell. The patient is not injured in any. No pain was reported after asking many times. Vitals stable. BP 148/68, pulse 77, 95% O2 sat, temp 98.7. Patient is now in bed, with a fresh gown and clean blankets and is sleeping with his eyes closed. Bed alarm is set at this time. No other needs were expressed. Call light is in reach.
--- NOTE | 2020-09-12 16:03 | NUR ---
Clinic Director faxed clinical updates to [facility], [facility], and [facility]. Barak contacted LETICIA and advised they were waiting on official auth and a bed. LETICIA spoke with Jennifer from [facility] who advised she cannot submit to insurance until there is more updated notes from OT. LETICIA collaborated with HILLARY Martin about this need. LETICIA advised Jennifer more updates would be sent once OT sees patient. LETICIA contacted Chris who advised they are still following referral, however not sure they can meet patient's needs at this time. LETICIA contacted patient's daughter, Kaylan to provide update. Later this afternoon, Barak contacted LETICIA again to advise that [employer] denied authorization and will no longer be waiving auth for COVID patient's. Barak was not sure an appeal would be sucessful but could get peer to peer information if requested.
[2020-09-12 16:41] VITALS: BP 142/58; PULSE 77; TEMP 99
--- NOTE | 2020-09-12 17:56 | NUR ---
Patient has been comfortable and stable since the event this afternoon. He slept most of the afternoon. No complaints of pain or discomfort. Patient is now sitting up for dinner at this time. Spoke with his daughter on the phone before he ate. No other needs or complaints at this time. Call light is in reach. Bed alarm set.
--- NOTE | 2020-09-12 19:10 | NUR ---
Received report from Maria Ines. Seen patient asleep in bed. He is on O2 at 5lpm via NC. Bed alarm on.
[2020-09-12 20:47] VITALS: BP 140/70; PULSE 83; TEMP 99.1
--- NOTE | 2020-09-12 21:00 | NUR ---
Patient is drowsy. Awaken patient for his night medicines. Instructed him not to try to get up on his own and use his call light to prevent fall incident. He said this morning he was just trying to move from his recliner and go back to bed but then he fell by doing that. He denies pain. Assesment done.
[2020-09-13 00:12] VITALS: BP 134/68; PULSE 83; TEMP 98.3
[2020-09-13 04:54] VITALS: BP 124/77; PULSE 75; TEMP 98.1
--- NOTE | 2020-09-13 06:32 | NUR ---
Patient had uneventful night. No complains noted. He is afebrile. With medium bowel movement this morning. Call light within reach.
[2020-09-13 07:03] LABS: BASO % 0.1 % (0.0-2.0); EOS # 0.1 (0.0-0.7); EOS % 0.7 % (0-4.0); GRAN # 9.4 (1.4-6.5); GRAN % 87.6 % (42.2-75.2); LYMPH # 0.6 (1.2-3.4); LYMPH % 5.5 % (20.0-51.0); MEAN CELL VOLUME 96 fl (80.0-100.0); MEAN CORPUSCULAR HGB CONC 32 g/dl (33.0-37.0); MEAN PLATELET VOLUME 9.6 fl (7.4-10.4); MONO # 0.6 (0.1-0.6); MONO % 5.4 % (1.7-9.3); PLATELET COUNT 219 K/mm3 (130-400); RED BLOOD COUNT 2.59 M/mm3 (4.20-5.60); REDCELL DISTRIBUTION WIDTH-CV 14.3 % (11.5-14.5)
[2020-09-13 07:07] LABS: HEMATOCRIT 24.9 % (42.0-52.0); HEMOGLOBIN 7.9 g/dl (13.5-18.0); MEAN CORPUSCULAR HEMOGLOBIN 31 pg (27.0-31.0)
[2020-09-13 07:09] LABS: ALBUMIN 3.4 gm/dL (3.5-5.0); BILIRUBIN,TOTAL 0.5 mg/dL (0.0-1.0); CALCIUM 8.9 mg/dL (8.4-10.2); CREATININE, serum 8.65 (0.66-1.25); TOTAL PROTEIN 6.6 gm/dL (6.4-8.2)
[2020-09-13 07:21] LABS: PHOSPHOROUS 7.7 mg/dL (2.5-4.5)
[2020-09-13 08:35] VITALS: BP 130/70; PULSE 75; TEMP 98.1
--- NOTE | 2020-09-13 08:50 | NUR ---
PT TAKEN TO DIALYSIS
[2020-09-13 16:16] VITALS: BP 117/56; PULSE 82; TEMP 98.6
--- NOTE | 2020-09-13 16:39 | NUR ---
Photoengraver Apprentice contacted Jennifer at [facility] who advised again they need updated OT notes to submit for auth. LETICIA contacted Chris at [facility] [employer] and advised it appears patient has been on 5-6 liters. LETICIA faxed clinical updates and Chris states his team is still reviewing. Chris states they can look at taking if patient is six liters or less. Chris states they would also have to collaborate with Health Department as patient is COVID positive. LETICIA also contacted [facility] in [place] as they can accept COVID positive patient's at this time. LETICIA faxed referral.
--- NOTE | 2020-09-13 18:37 | NUR ---
Patient alert and oriented, Had dialysis this am. Dialysis nurse report that no fluid was extracted. Patient report mild body ache, gave tylenol 500mg once. No fever. Stool occult not received, pt did not have stool output this shift. Patient report got appetite for food. denies nausea. Patient was swabbed for Covid19, as order by Wendi.
--- NOTE | 2020-09-13 19:06 | NUR ---
Patient covid19 result came back Negative. called Dr Amado to inform him. Dr rojas brew house supervisor to call him.
--- NOTE | 2020-09-13 21:00 | NUR ---
Initial shift assessment done- alert, has been resting quietly, o2 6L/nc, sats 92-93%, denies pain, Tele on, informed that we are moving him to new room heather boss test came back negative- will move to room 313. States he wants to go outside for a walk?- informed he still will have bed alarm on and cannot get up without assistance
[2020-09-13 21:06] VITALS: BP 130/60; PULSE 82; TEMP 99.8
[2020-09-14] VITALS (7 sets, daily range): BP systolic 104–142; BP diastolic 44–69; PULSE 74–89; TEMP 97.9–98.9
--- NOTE | 2020-09-14 06:17 | NUR ---
Did sleep for 4-5 hours during the night-- VSS, requesting some juice this morning,,happy about his new room, "i can see out the window"
[2020-09-14 08:11] LABS: BASO % 0.1 % (0.0-2.0); EOS # 0.1 (0.0-0.7); EOS % 1.2 % (0-4.0); GRAN # 6.6 (1.4-6.5); GRAN % 84.3 % (42.2-75.2); LYMPH # 0.6 (1.2-3.4); LYMPH % 7.3 % (20.0-51.0); MEAN CELL VOLUME 96 fl (80.0-100.0); MEAN CORPUSCULAR HGB CONC 32 g/dl (33.0-37.0); MEAN PLATELET VOLUME 9.6 fl (7.4-10.4); MONO # 0.5 (0.1-0.6); MONO % 6.5 % (1.7-9.3); PLATELET COUNT 206 K/mm3 (130-400); RED BLOOD COUNT 2.39 M/mm3 (4.20-5.60); REDCELL DISTRIBUTION WIDTH-CV 14.2 % (11.5-14.5)
[2020-09-14 08:16] LABS: HEMOGLOBIN 7.4 g/dl (13.5-18.0); MEAN CORPUSCULAR HEMOGLOBIN 31 pg (27.0-31.0)
[2020-09-14 08:22] LABS: BILIRUBIN,TOTAL 0.4 mg/dL (0.0-1.0); CALCIUM 8.2 mg/dL (8.4-10.2); CREATININE, serum 6.38 (0.66-1.25); PHOSPHOROUS 5.2 mg/dL (2.5-4.5); POTASSIUM 4.2 mmol/L (3.4-5.0); TOTAL PROTEIN 5.8 gm/dL (6.4-8.2)
--- NOTE | 2020-09-14 09:00 | NUR ---
Patient resting in bed. Easily awakened with verbal command. A&Ox4. VSS. 5L high flow NC O2. IV CDI. Patient states that he still doesnt feel better. Nursing staff encouraging patient to increase PO intake. Patient verbalized an understanding. Denies pain and discomfort, no reported SOB. Patient wants to walk in the [place]. PT aware. No further needs expressed from the patient. Call light within reach. Bed alarm on
--- NOTE | 2020-09-14 11:45 | NUR ---
1145- Pt on 5L o2 via nasal cannula. O2 sat 87-88%. OSCAR Paz updated, to bedside. Pt repositioned in bed to semi-fowlers. NC adjusted. O2 sat 88-90%. O2 increased to 6L. Pt has strong coughs. 1215- O2 sat 100%, O2 decreased to 5L. OSCAR Paz updated.
--- NOTE | 2020-09-14 14:07 | NUR ---
Received a call from Patients nurse about discharge today. Informed nurse that facilities had not accepted patient yet, and that Sw would call to locate accepting facility. contacted [facility] and spoke with Elvin who informed SW that they had not received patients OT information. Elvin provided LETICIA with fax number [phone], and informed SW that they would not have an answer until wednesday or wednesday. LETICIA contacted Chris at [facility] who first informed LETICIA that he would have to contact the health Dept to see if they would be able to accept the patient. He also asked about current Oxygen amount the patient was taking. LETICIA found out that patients most recent COVID test was negative, and contacted Chris to provide updated information. Chris requested that LETICIA fax notes, most recent OT, and COVID test to facility. LETICIA verified new fax number [phone], and faxed information. LETICIA also attempted to contact [facility] in [place] at 12:42 and 1:00, no one answered. LETICIA spoke with medical team to follow up.
--- NOTE | 2020-09-14 17:29 | NUR ---
Central line removed from left external jugular. Tip intact. 2 2x2 and tegaderm applied. 10 minutes pressure held. Patient tolerated well. No further needs expressed from the patient. Call light within reach. Bed alarm on
--- NOTE | 2020-09-14 17:41 | NUR ---
Patient has had an uneventful day, spent most of the day resting in bed. A&Ox4. VSS. 5L high flow NC O2. No reported SOB. IV site removed per doctors orders. Patient tolerated walking in the halls with PT. No further needs expressed from the patient. Call light within reach. Bed alarm on
--- NOTE | 2020-09-14 20:30 | NUR ---
Initial shift assessment done- denies pain, denies SOB, o2 at 6L/nc--blood sugar was 314-was given 10units sliding scale coverage. Pt quiet tonight- watching TV. Dressing to left neck dry and intact. Left upper arm fistula w/good thrill/bruit--pt took off dressing over fistula.
[2020-09-15 03:46] VITALS: BP 124/55; PULSE 75; TEMP 97.9
--- NOTE | 2020-09-15 06:03 | NUR ---
Did sleep fairly well last night- did get a Benadryl last night to help sleep- blood sugar 99 early am- requesting a sandwich- given.
[2020-09-15 06:38] LABS: BASO % 0.2 % (0.0-2.0); EOS # 0.1 (0.0-0.7); EOS % 1.6 % (0-4.0); GRAN % 81.9 % (42.2-75.2); LYMPH # 0.7 (1.2-3.4); LYMPH % 8.3 % (20.0-51.0); MEAN CELL VOLUME 95 fl (80.0-100.0); MEAN CORPUSCULAR HGB CONC 33 g/dl (33.0-37.0); MEAN PLATELET VOLUME 9.1 fl (7.4-10.4); MONO # 0.6 (0.1-0.6); MONO % 7.2 % (1.7-9.3); PLATELET COUNT 212 K/mm3 (130-400); RED BLOOD COUNT 2.43 M/mm3 (4.20-5.60); REDCELL DISTRIBUTION WIDTH-CV 14.4 % (11.5-14.5)
[2020-09-15 06:41] LABS: HEMATOCRIT 23.1 % (42.0-52.0); HEMOGLOBIN 7.5 g/dl (13.5-18.0); MEAN CORPUSCULAR HEMOGLOBIN 31 pg (27.0-31.0)
[2020-09-15 06:53] LABS: ALBUMIN 3.1 gm/dL (3.5-5.0); BILIRUBIN,TOTAL 0.4 mg/dL (0.0-1.0); CALCIUM 8.6 mg/dL (8.4-10.2); CREATININE, serum 8.33 (0.66-1.25); PHOSPHOROUS 6.2 mg/dL (2.5-4.5); POTASSIUM 4.2 mmol/L (3.4-5.0)
[2020-09-15 08:07] VITALS: BP 140/60; PULSE 60; TEMP 98.3
--- NOTE | 2020-09-15 09:30 | NUR ---
Patient resting in bed, responds to verbal command after calling his name a couple times. Drowsy, but A&Ox4. VSS 6L high flow NC. SOB at rest and with exertion. Fistula site CDI. Denies pain and discomfort. Patient repositioned for comfort and for eating breakfast. No further needs expressed from the patient. Call light within reach. Bed alarm on
[2020-09-15 11:20] VITALS: BP 135/67; PULSE 76; TEMP 98.4
[2020-09-15 15:39] VITALS: BP 126/58; PULSE 81; TEMP 98.7
--- NOTE | 2020-09-15 17:33 | NUR ---
Patient had an uneventful day, spent most of the day resting in bed. Woke with verbal command, had to shout his name a couple times to wake him up. A&Ox4. VSS 3L high flow NC O2. Denies pain and discomfort. Walked the [place] with PT and tolerated well. No further needs expressed from the patient. Call light within reach. Bed alarm on
[2020-09-15 19:24] VITALS: BP 140/63; PULSE 82; TEMP 98.3
--- NOTE | 2020-09-15 19:26 | NUR ---
Initial shift assessment done- states he is very bored- VSS, afebrile, o2 sats 94% on 3L/nc, denies pain, watching TV, states is going to dialysis tomorrow morning and then being discharged.
[2020-09-15 23:37] VITALS: BP 143/68; PULSE 86
[2020-09-16 05:58] VITALS: TEMP 98
[2020-09-16 06:57] LABS: BASO % 0.3 % (0.0-2.0); EOS # 0.1 (0.0-0.7); EOS % 1.9 % (0-4.0); GRAN % 82.8 % (42.2-75.2); LYMPH # 0.6 (1.2-3.4); LYMPH % 7.9 % (20.0-51.0); MEAN CELL VOLUME 95 fl (80.0-100.0); MEAN CORPUSCULAR HGB CONC 32 g/dl (33.0-37.0); MEAN PLATELET VOLUME 9.2 fl (7.4-10.4); MONO # 0.5 (0.1-0.6); MONO % 6.5 % (1.7-9.3); PLATELET COUNT 205 K/mm3 (130-400); RED BLOOD COUNT 2.41 M/mm3 (4.20-5.60); REDCELL DISTRIBUTION WIDTH-CV 14.6 % (11.5-14.5)
[2020-09-16 06:58] LABS: HEMATOCRIT 22.9 % (42.0-52.0); HEMOGLOBIN 7.4 g/dl (13.5-18.0); MEAN CORPUSCULAR HEMOGLOBIN 31 pg (27.0-31.0)
[2020-09-16 07:08] LABS: ALBUMIN 3.1 gm/dL (3.5-5.0); BILIRUBIN,TOTAL 0.4 mg/dL (0.0-1.0); CALCIUM 8.6 mg/dL (8.4-10.2); CREATININE, serum 10.71 (0.66-1.25); PHOSPHOROUS 7.5 mg/dL (2.5-4.5); POTASSIUM 4.5 mmol/L (3.4-5.0)
[2020-09-16 07:18] VITALS: BP 136/56; PULSE 78; TEMP 98.2
--- NOTE | 2020-09-16 07:26 | NUR ---
Did rest fair during the night- remains on 02 at 3L/nc, sats 94%
--- NOTE | 2020-09-16 08:51 | NUR ---
Pt sleeping upon entry, easily awakened, no C/O pain at this time. Shift assessments complete, left Pt call light in reach, bed in lowest position.
--- NOTE | 2020-09-16 15:04 | NUR ---
Machine Quilt Stuffer contacted Jennifer at [facility] about referral and she advised again that she needs PT/OT notes and progress notes from the last 48 hours to submit for auth. LETICIA contacted IGNAC[facility] Saeed about working with patient today. LETICIA contacted [facility] and faxed updates. Patient tested negative for COVID over the weekend, so LETICIA also faxed referrals to [facility] and [facility]. Tonia at [facility] advised they are not able to accept referral. LETICIA also contacted Nicole Galvez [facility] to give referral. Leonor to hold off submitting for auth as [facility] is submitting for prior auth. LETICIA received a follow up call from [facility] who advised he has contacted Natalia and has submitted for authorization. LETICIA faxed updated PT/OT/Progress notes to Jennifer at [facility]. LETICIA contacted patient's daughter, Kaylan to provide update. LETICIA advised [facility] Adame that [facility] has submitted for authorization.
[2020-09-16 16:27] VITALS: BP 119/53; PULSE 86; TEMP 98.4
--- NOTE | 2020-09-16 18:10 | NUR ---
Pt resting in the room today, has has no C/O pain. Pt had session of dialysis this morning, 300 ml reported removed. Pt had no other complaints. VS have remained stable.
[2020-09-16 18:56] VITALS: BP 150/76; PULSE 88; TEMP 98.8
--- NOTE | 2020-09-16 21:55 | NUR ---
Pt assessment completed and documented. Pt resting in bed watching TV. Alert and oriented x4. Denies pain. Fistula to LUE CDI with audible bruit and strong palpable thrill. Pt states he is feeling better and is eager to leave soon. Pt denies any needs/conerns. Fall precautions in place. Bed alarm on. Call light within reach. Will continue to monitor.
[2020-09-16 23:33] VITALS: BP 138/64; PULSE 89; TEMP 98.6
[2020-09-17 03:39] VITALS: BP 138/81; PULSE 92; TEMP 98.3
--- NOTE | 2020-09-17 04:57 | NUR ---
Pt states he was unable to sleep much tonight. Has been watching TV throughout the night. Currently resting in bed with eyes closed. No reports of pain overnight. Call light within reach. Bed alarm on.
[2020-09-17 05:57] LABS: BASO % 0.2 % (0.0-2.0); EOS # 0.2 (0.0-0.7); EOS % 2.5 % (0-4.0); GRAN # 4.8 (1.4-6.5); LYMPH # 0.5 (1.2-3.4); LYMPH % 8.9 % (20.0-51.0); MEAN CELL VOLUME 97 fl (80.0-100.0); MEAN CORPUSCULAR HGB CONC 32 g/dl (33.0-37.0); MONO # 0.4 (0.1-0.6); MONO % 6.9 % (1.7-9.3); PLATELET COUNT 186 K/mm3 (130-400); RED BLOOD COUNT 2.46 M/mm3 (4.20-5.60); REDCELL DISTRIBUTION WIDTH-CV 14.9 % (11.5-14.5)
[2020-09-17 06:03] LABS: HEMATOCRIT 23.8 % (42.0-52.0); HEMOGLOBIN 7.7 g/dl (13.5-18.0); MEAN CORPUSCULAR HEMOGLOBIN 31 pg (27.0-31.0)
[2020-09-17 06:05] LABS: ALBUMIN 3.1 gm/dL (3.5-5.0); BILIRUBIN,TOTAL 0.4 mg/dL (0.0-1.0); CALCIUM 8.5 mg/dL (8.4-10.2); CREATININE, serum 6.94 (0.66-1.25); POTASSIUM 4.6 mmol/L (3.4-5.0); TOTAL PROTEIN 6.4 gm/dL (6.4-8.2)
[2020-09-17 06:16] LABS: PHOSPHOROUS 5.4 mg/dL (2.5-4.5)
[2020-09-17 07:32] VITALS: BP 165/64; PULSE 77
--- NOTE | 2020-09-17 08:33 | NUR ---
PATIENTS BLOOD SUGAR UPON RECHECK WAS 96 AFTER BREAKFAST AND NEPRO SHAKE. PATIENT DENIES PAIN AT THIS TIME. PATIENT GIVEN ORANGE JUICE WITH METAMUCIL AFTER RE-CHECK. AM MEDS GIVEN AT THIS TIME. SHIFT ASSESSMENT COMPLETE. PATIENT RESTING QUIETLY IN BED. CALL LIGHT IN REACH.
--- NOTE | 2020-09-17 11:32 | NUR ---
Chris with [facility] reports he can accept the patient for a alf stay this day, 09/17 and can be transported at 1430. The team was in agreeance. SW attempted to contact the patient via room and cell phone to provide an update. No answer. LETICIA attempted to contact the patient's daughter, Livia to provide update about transportation time, left message. SW contacted the patient's other daughter, Kaylan. She was in agreeance with the discharge plan. LETICIA presented the IM form to Kaylan. She verbalized understanding about the patient's Medicare rights and gave SW permission to sign the form on her behalf. A copy was provided to the patient and original was placed in the chart. There are no additional needs at this time.
[2020-09-17 11:43] VITALS: BP 133/55; PULSE 75; TEMP 98.2
[2020-09-17 15:05] VITALS: BP 133/55; PULSE 75; TEMP 98.2
--- NOTE | 2020-09-17 15:15 | NUR ---
PATIENT PERSONAL BELONGINGS GATHERED. PATIENT TAKEN TO PRIVATE TRANSPORT VEHICLE VIA WHEELCHAIR.
--- NOTE | 2020-09-17 15:28 | NUR ---
PATIENT REPORT GIVEN TO OSCAR GORMAN AT [facility]. PATIENT TRANSFERRED.
== END 2020-09-17 15:15 | DRG 207 ==
LOC: COL.ER 12:15 → PEDS 14:11 → ICU 14:11 → PEDS 22:30 → ICU 09-02 17:36 → PEDS 09-10 14:26 → MEDICAL 09-14 06:01
PROVIDERS: Family Medicine; Internal Medicine; Internal Medicine Critical Care Medicine; Internal Medicine Pulmonary Disease; ADMIT Internal Medicine Nephrology
PROC: 02HV33Z Insertion of Infusion Device into Superior Vena Cava, Percutaneous Approach (ICD-10-PCS; 2020-09-02)
PROC: 0BH17EZ Insertion of Endotracheal Airway into Trachea, Via Natural or Artificial Opening (ICD-10-PCS; principal; 2020-09-03)
PROC: 5A1955Z Respiratory Ventilation, Greater than 96 Consecutive Hours (ICD-10-PCS; 2020-09-03)
PROC: 5A1D70Z Performance of Urinary Filtration, Intermittent, Less than 6 Hours Per Day (ICD-10-PCS; 2020-09-16)
DX: U07.1 COVID-19 (principal); N18.6 End stage renal disease; J12.89 Other viral pneumonia; I12.0 Hypertensive chronic kidney disease with stage 5 chronic kidney disease or end stage renal disease; E83.39 Other disorders of phosphorus metabolism; E11.22 Type 2 diabetes mellitus with diabetic chronic kidney disease; D63.1 Anemia in chronic kidney disease; Z87.820 Personal history of traumatic brain injury; I25.10 Atherosclerotic heart disease of native coronary artery without angina pectoris; E78.5 Hyperlipidemia, unspecified; F32.9 Major depressive disorder, single episode, unspecified; F43.10 Post-traumatic stress disorder, unspecified; I25.2 Old myocardial infarction; D64.9 Anemia, unspecified; N40.0 Benign prostatic hyperplasia without lower urinary tract symptoms; M19.90 Unspecified osteoarthritis, unspecified site; Z79.82 Long term (current) use of aspirin
CPT/HCPCS: J0330; J0360; J0696; J1100; J1644; J1650; J1815; J2250; J2405; J2543; J2704; J3010; J3370; J7030; J7050; J7060; J8540; Q5105

== ENCOUNTER → 2020-11-23 | Outpatient (REF) ==
[~2020-11-23] MED LIST changes: +PREDNISONE20 MG PO; +RT Anoro Ellipta IH
== END ==
LOC: ZLAB.STJ 11:02
DX: N18.6 End stage renal disease (principal)

== ENCOUNTER → 2020-12-12 | Outpatient (CLI) | payer MEDICARE | LOC: COL.RAD | DX: J84.9 Interstitial pulmonary disease, unspecified (principal) ==

== ENCOUNTER → 2021-01-28 | Outpatient (CLI) | payer MEDICARE ==
[~2021-01-28] MED LIST changes: +AUGMENTIN 250 M1 TAB PO; +ZITHROMAX Z PA250 MG PO
== END ==
LOC: ZLAB.STJ 13:12
DX: E11.22 Type 2 diabetes mellitus with diabetic chronic kidney disease (principal)

== ENCOUNTER 2021-02-01 18:26 | Emergency (ER) | payer MEDICARE ==
[~2021-02-01] VITALS: Ht 172.7 cm; Wt 81.8 kg
[~2021-02-01 18:26] MED LIST changes: -AUGMENTIN 250 M1 TAB PO; -ZITHROMAX Z PA250 MG PO
[2021-02-01 18:27] VITALS: TEMP 98.5
[2021-02-01 18:56] LABS: BASO % 0.5 % (0.0-2.0); EOS # 0.2 (0.0-0.7); EOS % 2.7 % (0-4.0); GRAN # 6.3 (1.4-6.5); GRAN % 76.3 % (42.2-75.2); HEMOGLOBIN 10.3 g/dl (13.5-18.0); LYMPH # 0.9 (1.2-3.4); LYMPH % 11.2 % (20.0-51.0); MEAN CELL VOLUME 98 fl (80.0-100.0); MEAN CORPUSCULAR HEMOGLOBIN 31 pg (27.0-31.0); MEAN CORPUSCULAR HGB CONC 31 g/dl (33.0-37.0); MONO # 0.7 (0.1-0.6); MONO % 8.9 % (1.7-9.3); PLATELET COUNT 207 K/mm3 (130-400); RED BLOOD COUNT 3.37 M/mm3 (4.20-5.60); REDCELL DISTRIBUTION WIDTH-CV 15.6 % (11.5-14.5)
[2021-02-01 18:57] LABS: HEMATOCRIT 32.9 % (42.0-52.0)
[2021-02-01 19:04] LABS: INR 0.9 (0.8-3.0); PROTHROMBIN TIME 10.3 SECONDS (9.7-12.8)
[2021-02-01 19:06] LABS: PARTIAL THROMBOPLASTIN TIME 36.5 SECONDS (26.0-37.0)
[2021-02-01 19:08] LABS: ALBUMIN 4.5 gm/dL (3.5-5.0); BILIRUBIN,TOTAL 0.2 mg/dL (0.0-1.0); CALCIUM 9.5 mg/dL (8.4-10.2); CREATININE, serum 8.54 (0.66-1.25); POTASSIUM 5.4 mmol/L (3.4-5.0); TOTAL PROTEIN 8.6 gm/dL (6.4-8.2)
[2021-02-01 19:19] LABS: TROPONIN-I 0.016 ng/mL (0.000-0.035)
[2021-02-01 21:50] VITALS: BP 145/70; PULSE 80
== END 2021-02-01 21:50 | disposition home or self-care (01) ==
LOC: COL.ER 18:26
PROVIDERS: Family Medicine
DX: R07.89 Other chest pain (principal); I12.0 Hypertensive chronic kidney disease with stage 5 chronic kidney disease or end stage renal disease; E11.22 Type 2 diabetes mellitus with diabetic chronic kidney disease; N18.6 End stage renal disease; I25.10 Atherosclerotic heart disease of native coronary artery without angina pectoris; E78.5 Hyperlipidemia, unspecified; I25.2 Old myocardial infarction; Z99.2 Dependence on renal dialysis; Z86.16 Personal history of COVID-19; Z79.52 Long term (current) use of systemic steroids; Z79.4 Long term (current) use of insulin; Z79.82 Long term (current) use of aspirin
CPT/HCPCS: J2270; J2405

== ENCOUNTER → 2021-02-03 | Outpatient (CLI) | payer MEDICARE ==
[~2021-02-03] MED LIST changes: +AUGMENTIN 250 M1 TAB PO; +ZITHROMAX Z PA250 MG PO
[2021-02-03 14:52] LABS: BASO % 0.4 % (0.0-2.0); EOS # 0.3 (0.0-0.7); GRAN % 82.8 % (42.2-75.2); LYMPH # 0.7 (1.2-3.4); LYMPH % 7.4 % (20.0-51.0); MEAN CELL VOLUME 96 fl (80.0-100.0); MEAN CORPUSCULAR HGB CONC 32 g/dl (33.0-37.0); MEAN PLATELET VOLUME 9.3 fl (7.4-10.4); MONO # 0.6 (0.1-0.6); MONO % 6.2 % (1.7-9.3); PLATELET COUNT 225 K/mm3 (130-400); RED BLOOD COUNT 3.06 M/mm3 (4.20-5.60); REDCELL DISTRIBUTION WIDTH-CV 15.6 % (11.5-14.5)
[2021-02-03 14:54] LABS: HEMATOCRIT 29.5 % (42.0-52.0); HEMOGLOBIN 9.3 g/dl (13.5-18.0); MEAN CORPUSCULAR HEMOGLOBIN 30 pg (27.0-31.0)
[2021-02-03 14:57] LABS: CALCIUM 9.5 mg/dL (8.4-10.2); CREATININE, serum 11.43 (0.66-1.25); POTASSIUM 5.6 mmol/L (3.4-5.0)
== END ==
LOC: ZLAB.STJ 13:35
DX: N18.6 End stage renal disease (principal)

== ENCOUNTER → 2021-02-06 | Outpatient (CLI) | payer MEDICARE | LOC: COL.RAD 09:28 | DX: R05 Cough (principal); Z86.16 Personal history of COVID-19 ==

== ENCOUNTER 2021-02-23 01:53 | Emergency (ER) | payer MEDICARE ==
[~2021-02-23] VITALS: Ht 172.7 cm; Wt 81.8 kg
[~2021-02-23 01:53] MED LIST changes: -AUGMENTIN 250 M1 TAB PO; -ZITHROMAX Z PA250 MG PO
[2021-02-23 02:04] VITALS: TEMP 98.3
[2021-02-23 02:31] LABS: COLLECTION METHOD CLEAN CATCH
[2021-02-23 02:41] LABS: BASO # 0.1 (0.0-0.2); BASO % 0.5 % (0.0-2.0); EOS # 0.3 (0.0-0.7); EOS % 3.2 % (0-4.0); GRAN % 79.6 % (42.2-75.2); LYMPH # 0.8 (1.2-3.4); LYMPH % 8.2 % (20.0-51.0); MEAN CELL VOLUME 94 fl (80.0-100.0); MEAN CORPUSCULAR HGB CONC 31 g/dl (33.0-37.0); MONO # 0.8 (0.1-0.6); MONO % 8.1 % (1.7-9.3); PLATELET COUNT 205 K/mm3 (130-400); RED BLOOD COUNT 3.13 M/mm3 (4.20-5.60); REDCELL DISTRIBUTION WIDTH-CV 15.7 % (11.5-14.5)
[2021-02-23 02:43] LABS: HEMATOCRIT 29.4 % (42.0-52.0); HEMOGLOBIN 9.2 g/dl (13.5-18.0); MEAN CORPUSCULAR HEMOGLOBIN 29 pg (27.0-31.0)
[2021-02-23 02:44] LABS: PH 9 (5-8); SQUAMOUS EPITHELIAL None Seen /hpf; URINE APPEARANCE Clear; URINE BACTERIA None Seen /hpf; URINE BILIRUBIN Negative (NEGATIVE); URINE BLOOD Negative (NEGATIVE); URINE COLOR Straw; URINE GLUCOSE 2+ (NEGATIVE); URINE KETONE Negative (NEGATIVE); URINE LEUKOCYTE ESTERASE Negative (NEGATIVE); URINE NITRATE Negative (NEGATIVE); URINE PROTEIN(semi-quant) 3+ (NEGATIVE); URINE UROBILINOGEN Negative (NEGATIVE)
[2021-02-23 02:49] LABS: ALBUMIN 4.4 gm/dL (3.5-5.0); BILIRUBIN,TOTAL 0.2 mg/dL (0.0-1.0); CALCIUM 9.5 mg/dL (8.4-10.2); CREATININE, serum 9.68 (0.66-1.25); POTASSIUM 4.7 mmol/L (3.4-5.0); TOTAL PROTEIN 8.4 gm/dL (6.4-8.2)
[2021-02-23 03:01] LABS: TROPONIN-I 0.02 ng/mL (0.000-0.035)
[2021-02-23] MEDS ORDERED: AUGMENTIN 250 M1 TAB PO (04:53)
[2021-02-23] MEDS ORDERED: ZITHROMAX Z PA250 MG PO (04:53)
[2021-02-23 08:25] VITALS: BP 135/64; PULSE 96
== END 2021-02-23 08:25 | disposition home or self-care (01) ==
LOC: COL.ER 01:53
PROVIDERS: Emergency Medicine
DX: R45.6 Violent behavior (principal); I12.0 Hypertensive chronic kidney disease with stage 5 chronic kidney disease or end stage renal disease; E11.22 Type 2 diabetes mellitus with diabetic chronic kidney disease; N18.6 End stage renal disease; I25.10 Atherosclerotic heart disease of native coronary artery without angina pectoris; E78.5 Hyperlipidemia, unspecified; I25.2 Old myocardial infarction; Z87.891 Personal history of nicotine dependence; Z79.4 Long term (current) use of insulin; Z79.82 Long term (current) use of aspirin; Z79.899 Other long term (current) drug therapy; Z99.2 Dependence on renal dialysis

== ENCOUNTER → 2021-05-19 | Outpatient (CLI) | payer MEDICARE ==
[~2021-05-19] MED LIST changes: +AUGMENTIN 250 M1 TAB PO; +ZITHROMAX Z PA250 MG PO
[2021-05-19 22:44] LABS: LDL-DIRECT-SEND OUT 85 mg/dL (0-129)
== END ==
LOC: ZLAB.STJ 16:08
PROVIDERS: Internal Medicine
DX: E78.6 Lipoprotein deficiency (principal); Z01.84 Encounter for antibody response examination

== ENCOUNTER 2021-07-02 01:27 | Emergency (ER) | payer MEDICARE ==
[~2021-07-02] VITALS: Ht 172.7 cm; Wt 81.8 kg
[2021-07-02 01:33] VITALS: TEMP 98.8
[2021-07-02 03:17] VITALS: BP 139/65; PULSE 85
== END 2021-07-02 03:17 | disposition home or self-care (01) ==
LOC: COL.ER 01:27
DX: R45.6 Violent behavior (principal); R45.4 Irritability and anger; I25.10 Atherosclerotic heart disease of native coronary artery without angina pectoris; E11.22 Type 2 diabetes mellitus with diabetic chronic kidney disease; I12.0 Hypertensive chronic kidney disease with stage 5 chronic kidney disease or end stage renal disease; N18.6 End stage renal disease; E78.5 Hyperlipidemia, unspecified; Z95.1 Presence of aortocoronary bypass graft; Z99.2 Dependence on renal dialysis; Z79.899 Other long term (current) drug therapy; Z79.4 Long term (current) use of insulin; Z79.82 Long term (current) use of aspirin

== ENCOUNTER → 2021-07-31 | Outpatient (CLI) | payer MEDICARE | LOC: ZLAB.STJ 14:39 | DX: Z51.81 Encounter for therapeutic drug level monitoring (principal) ==

== ENCOUNTER 2021-08-19 15:32 | Emergency (ER) | payer MEDICARE ==
[~2021-08-19] VITALS: Ht 175.3 cm; Wt 84.0 kg
[2021-08-19 15:46] VITALS: BP 145/78; PULSE 82; TEMP 98.2
[2021-08-19 16:45] LABS: BASO % 0.6 % (0.0-2.0); EOS # 0.2 K/mm3 (0.0-0.7); GRAN # 4.6 K/mm3 (1.4-6.5); GRAN % 68.3 % (42.2-75.2); HEMOGLOBIN 11.2 g/dl (13.5-18.0); LYMPH % 15.4 % (20.0-51.0); MEAN CELL VOLUME 92 fl (80.0-100.0); MEAN CORPUSCULAR HEMOGLOBIN 30 pg (27.0-31.0); MEAN CORPUSCULAR HGB CONC 32 g/dl (33.0-37.0); MEAN PLATELET VOLUME 8.9 fl (7.4-10.4); MONO # 0.8 K/mm3 (0.1-0.6); MONO % 12.3 % (1.7-9.3); PLATELET COUNT 131 K/mm3 (130-400); REDCELL DISTRIBUTION WIDTH-CV 16.1 % (11.5-14.5)
[2021-08-19 17:01] LABS: ALANINE AMINOTRANSFERASE 10 U/L (0-55); ALBUMIN 3.3 gm/dL (3.4-4.8); ALKALINE PHOSPHATASE 56 U/L (40-150); ANION GAP 16 mmol/L (7-16); AST,SGOT 9 U/L (5-34); BILIRUBIN,TOTAL 0.4 mg/dL (0.2-1.2); BLOOD UREA NITROGEN 54 mg/dL (8-26); CALCIUM 9.4 mg/dL (8.4-10.2); CARBON DIOXIDE 29 mmol/L (23-31); CHLORIDE 96 mmol/L (98-107); CREATININE, serum 9.87 mg/dL (0.72-1.25); GLUCOSE 152 mg/dL (70-99); POTASSIUM 4.6 mmol/L (3.5-4.5); SODIUM 141 mmol/L (136-145); TOTAL PROTEIN 7.6 gm/dL (6.2-8.1)
[2021-08-19 17:06] LABS: ACETAMINOPHEN < 1.0 ug/mL (10-30); ALCOHOL(ethanol),MEDICAL < 10 mg/dL (0-10); SALICYLATE < 5.0 mg/dL (15.0-30.0)
[2021-08-19 17:56] LABS: COLLECTION METHOD CLEAN CATCH
[2021-08-19 18:11] LABS: PH 8 (5-8); SQUAMOUS EPITHELIAL 0-2 /hpf; URINE APPEARANCE Clear; URINE BACTERIA None Seen /hpf; URINE BILIRUBIN Negative (NEGATIVE); URINE BLOOD Negative (NEGATIVE); URINE COLOR Straw; URINE GLUCOSE 3+ (NEGATIVE); URINE KETONE Negative (NEGATIVE); URINE LEUKOCYTE ESTERASE Negative (NEGATIVE); URINE NITRATE Negative (NEGATIVE); URINE PROTEIN(semi-quant) 3+ (NEGATIVE); URINE UROBILINOGEN Negative (NEGATIVE)
[2021-08-19 18:17] LABS: TRICYCLIC ANTIDEPRESS URINE NEGATIVE
== END 2021-08-19 21:14 | disposition home or self-care (01) ==
LOC: COL.ER 15:32
PROVIDERS: Nurse Practitioner Primary Care
DX: R45.851 Suicidal ideations (principal); I25.2 Old myocardial infarction; E11.22 Type 2 diabetes mellitus with diabetic chronic kidney disease; I12.0 Hypertensive chronic kidney disease with stage 5 chronic kidney disease or end stage renal disease; N18.6 End stage renal disease; E78.5 Hyperlipidemia, unspecified; F43.10 Post-traumatic stress disorder, unspecified; F03.90 Unspecified dementia, unspecified severity, without behavioral disturbance, psychotic disturbance, mood disturbance, and anxiety; I25.10 Atherosclerotic heart disease of native coronary artery without angina pectoris; Z79.82 Long term (current) use of aspirin; Z79.4 Long term (current) use of insulin; Z79.899 Other long term (current) drug therapy

== ENCOUNTER 2021-11-08 00:46 | Emergency (ER) | payer MEDICARE, MEDICAID ==
[2021-11-08 01:12] VITALS: TEMP 98.3
[2021-11-08 02:22] VITALS: BP 1269/69; PULSE 80
== END 2021-11-08 02:22 | disposition home or self-care (01) ==
LOC: COL.ER 00:46
DX: R04.0 Epistaxis (principal); E11.22 Type 2 diabetes mellitus with diabetic chronic kidney disease; I12.0 Hypertensive chronic kidney disease with stage 5 chronic kidney disease or end stage renal disease; N18.6 End stage renal disease; I25.10 Atherosclerotic heart disease of native coronary artery without angina pectoris; E78.5 Hyperlipidemia, unspecified; M10.9 Gout, unspecified; I25.2 Old myocardial infarction; Z99.2 Dependence on renal dialysis; Z79.4 Long term (current) use of insulin; Z79.82 Long term (current) use of aspirin; Z79.899 Other long term (current) drug therapy

== ENCOUNTER → 2021-11-11 | Outpatient (CLI) | payer MEDICARE, MEDICAID ==
[2021-11-11 12:35] LABS: COLLECTION METHOD CLEAN CATCH
[2021-11-11 12:56] LABS: MUCOUS Present (NOT PRESENT); PH 9 (5-8); SQUAMOUS EPITHELIAL None Seen /hpf (0-10); URINE APPEARANCE Clear (CLEAR/HAZY); URINE BACTERIA None Seen /hpf (NONE SEEN); URINE BILIRUBIN Negative (NEGATIVE); URINE BLOOD Negative (NEGATIVE); URINE COLOR Straw (YELLOW); URINE GLUCOSE 3+ (NEGATIVE); URINE KETONE Negative (NEGATIVE); URINE LEUKOCYTE ESTERASE Negative (NEGATIVE); URINE NITRATE Negative (NEGATIVE); URINE PROTEIN(semi-quant) 2+ (NEGATIVE); URINE UROBILINOGEN Negative (NEGATIVE); URINE WBC 0-2 /hpf (0-2)
== END ==
LOC: ZLAB.STJ 12:30
PROVIDERS: Internal Medicine
DX: N39.0 Urinary tract infection, site not specified (principal)

== ENCOUNTER → 2021-11-13 | Outpatient (CLI) | payer MEDICARE, MEDICAID ==
[2021-11-13 16:34] LABS: BASO % 0.5 % (0.0-2.0); EOS # 0.2 K/mm3 (0.0-0.7); EOS % 2.5 % (0.0-4.0); GRAN # 6.3 K/mm3 (1.4-6.5); GRAN % 75.5 % (42.2-75.2); HEMATOCRIT 33.6 % (42.0-52.0); HEMOGLOBIN 10.4 g/dl (13.5-18.0); LYMPH # 0.9 K/mm3 (1.2-3.4); LYMPH % 10.7 % (20.0-51.0); MEAN CELL VOLUME 99 fl (80.0-100.0); MEAN CORPUSCULAR HEMOGLOBIN 31 pg (27-31); MEAN CORPUSCULAR HGB CONC 31 g/dl (33.0-37.0); MEAN PLATELET VOLUME 9.5 fl (7.4-10.4); MONO # 0.9 K/mm3 (0.1-0.6); MONO % 10.4 % (1.7-9.3); PLATELET COUNT 148 K/mm3 (130-400); RED BLOOD COUNT 3.39 M/mm3 (4.20-5.60); REDCELL DISTRIBUTION WIDTH-CV 15.4 % (11.5-14.5)
[2021-11-13 17:12] LABS: ALBUMIN 3.3 gm/dL (3.4-4.8); BILIRUBIN,TOTAL 0.4 mg/dL (0.2-1.2); CALCIUM 8.8 mg/dL (8.4-10.2); CREATININE, serum 7.42 mg/dL (0.72-1.25); POTASSIUM 5.4 mmol/L (3.5-4.5); TOTAL PROTEIN 7.2 gm/dL (6.2-8.1)
[2021-11-13 17:18] LABS: VALPROIC ACID (DEPAKENE) 27.1 ug/mL (43.5-90.5)
== END ==
LOC: ZLAB.STJ 16:16
PROVIDERS: Internal Medicine
DX: I10 Essential (primary) hypertension (principal)

== ENCOUNTER → 2021-12-01 | Outpatient (CLI) | payer MEDICARE, MEDICAID | LOC: COL.RAD 09:06 | DX: N20.0 Calculus of kidney (principal); N28.1 Cyst of kidney, acquired ==